=== PATIENT | female | born 1950 | race Caucasian/White ===

== ENCOUNTER 2017-08-20 09:25 | Day surgery (SDC) | payer MEDICARE, MEDICAID ==
[~2017-08-20] VITALS: Ht 160 cm; Wt 69.0 kg
[~2017-08-20 09:25] MED LIST: COMBIVENT RESPIM4 GM INH; DOXYCYCLINE HY100 MG PO; DURAGESIC1 EAC4 TD; GABAPENTIN300 MG PO; MEDI-PATCH WIT1 EACH TOP; MORPHINE SULFAT15 M1 PO; MORPHINE SULFAT15 MG PO; NABUMETONE750 MG PO; NORCO 10-325 T1 EACH PO; OXYCODONE-ACET1 EAC3 PO; PREDNISONE20 MG PO; ROPINIROLE HCL3 MG PO; VENTOLIN HFA18 GM INH; ZOFRAN ODT4 MG PO
--- NOTE | 2017-08-20 10:25 | NUR ---
08/20/17 1024 [address] 1017-PATIENT ARRIVED TO PACU ON 10L MASK O2 SAT 100% PATIENT NONAROUSABLE ORAL AIRWAY IN PLACE RR EVEN. SR. ABDOMEN SOFT. 1023-WEANED TO 6L MASK O2 SAT 100%
--- NOTE | 2017-08-20 11:28 | NUR ---
HARD TO WAKE UP BUT STILL RATES PAIN OVER 10/10 WITH SLURRED SPEECH.
--- NOTE | 2017-08-20 11:31 | NUR ---
TO KOFI , DAVION. AUSTEN AT BEDSIDE.
--- NOTE | 2017-08-20 13:39 | NUR ---
BECOMING MORE AWAKE NO SLURR TO SPEECH. ASKING TO GO HOME. TAKING DRINKS OF WATER.
--- NOTE | 2017-08-20 13:49 | NUR ---
ON DC PT STILL C/O PAIN THIS IS HER DAILY PAIN NOT ASSOC WITH COLONOSCOPY.
--- NOTE | 2017-08-20 13:52 | OR ---
[facility] [address] [place], [place] [address] Signed DATE OF OPERATION: 08/20/2017 SURGEON: Whitney Cabrera MD PREOPERATIVE DIAGNOSES: 1. Melena/rectal bleeding. 2. Sigmoid resection for ischemia. 3. Diverticulosis. 4. External hemorrhoids. 5. An unspecified rectal/anal mass per patient. 6. Pruritus ani. 7. Constipation secondary to narcotics. POSTOPERATIVE DIAGNOSES: 1. A 5 mm polyps at 58 cm x 2, 50 cm and 30 cm. 2. Minimal diverticulosis. 3. Moderate internal anal skin tag. 4. Moderate internal and external hemorrhoids. PROCEDURE: Colonoscopy without biopsy. ESTIMATED BLOOD LOSS: None. INDICATIONS: Briseida is a 67-year-old female who I have known for quite some time. I had to remove her sigmoid resection for ischemic bowel. She is also known to have a little diverticulosis remaining. We did her last colonoscopy in 2008. She had fairly prominent external hemorrhoids at that time. The anastomosis was fine. However, more recently she has noticed some melena and rectal bleeding. She also is concerned about a mass at the anus. She thinks it is 12 inches long and she can pull at it, but it always goes back inside. She also has some constipation from her daily narcotic use and some pruritus ani. She has no family history of colon cancer or polyps. Because of her daily need for narcotics and her COPD, we did ask an anesthesia provider to help us with increased monitoring sedation. In fact, she is allergic to egg, so she was given etomidate today. In the office, I had reviewed colonoscopy with Briseida and her . They understand the nature of that test along with its risks including, but not limited to gas bloating, crampy abdominal pain, bleeding, perforation, requiring surgery, and missed diagnosis. She also understands the need for IV conscious sedation. Electronically Signed By: WHITNEY CABRERA MD 08/20/17 1352 PATIENT NAME: BRISEIDA QUIROZ OPERATIVE REPORT DATE OF : 48 REPORT #: [id number] PHYSICIAN: WHITNEY CABRERA MD PCP: CHARISSE WOODARD MD REPORT IS CONFIDENTIAL AND NOT TO BE RELEASED WITHOUT AUTHORIZATION [facility] [address] [place], [place] [address] Signed She had expressed understanding and wished to proceed. PROCEDURE NOTE: Briseida was taken into our endoscopy suite and placed in the left lateral decubitus position. She was given etomidate per our nurse nut tightener. A digital rectal exam was performed and as always she has moderate external hemorrhoids and I could feel the moderate indurated internal anal skin tag. The adult colonoscope was then introduced and advanced all around into the cecum under direct visualization of camera without difficulty. Her prep was good. The scope was slowly withdrawn. The above-mentioned polyps were removed with the help of hot biopsy forceps. She does have a few diverticula in the right and left colon. They were minimal in number, and moderate in size. The anastomosis at the top of the rectum is well healed. The rectum itself was unremarkable. Upon retroflexion of scope, she does have moderate internal hemorrhoids and of course, the moderate indurated internal anal skin tag. After this, the gas was suctioned out. The colonoscope removed. Brisedia tolerated the procedure quite well. RECOMMENDATIONS: I will see Briseida bautista in my office in 7 to 14 days to review her results. Whitney Cabrera MD ALB/MODL /[id number] cc: MD Charisse Monk MD Copies: WHITNEY CABRERA MD, JONATHAN MD ~ Electronically Signed By: WHITNEY CABRERA MD 08/20/17 1352 PATIENT NAME: BRISEIDA QURIOZ OPERATIVE REPORT DATE OF : 48 REPORT #: [id number] PHYSICIAN: WHITNEY CABRERA MD PCP: CHARISSE WOODARD MD REPORT IS CONFIDENTIAL AND NOT TO BE RELEASED WITHOUT AUTHORIZATION
== END 2017-08-20 13:40 | disposition home or self-care (01) ==
LOC: DS 09:25 → OPS 09:25
PROVIDERS: Colon & Rectal Surgery
PROC: 0DBE8ZZ Excision of Large Intestine, Via Natural or Artificial Opening Endoscopic (ICD-10-PCS; principal; 2017-08-20 09:15)
DX: D12.6 Benign neoplasm of colon, unspecified (principal); K57.30 Diverticulosis of large intestine without perforation or abscess without bleeding; K64.8 Other hemorrhoids; K64.4 Residual hemorrhoidal skin tags; J44.9 Chronic obstructive pulmonary disease, unspecified; F17.210 Nicotine dependence, cigarettes, uncomplicated; E78.00 Pure hypercholesterolemia, unspecified; Z90.49 Acquired absence of other specified parts of digestive tract; Z88.0 Allergy status to penicillin; Z88.2 Allergy status to sulfonamides; Z88.8 Allergy status to other drugs, medicaments and biological substances; Z79.82 Long term (current) use of aspirin; Z79.891 Long term (current) use of opiate analgesic; Z79.899 Other long term (current) drug therapy
CPT/HCPCS: 88305; J1720; J2704; J7120

== ENCOUNTER 2019-02-13 10:26 | Emergency (ER) | payer MEDICARE, MEDICAID ==
[~2019-02-13] VITALS: Ht 160 cm; Wt 69.0 kg
[2019-02-13] MEDS ORDERED: ZITHROMAX250 MG PO (10:43)
[2019-02-13] MEDS ORDERED: PULMICORT FLE180 MCG INH (10:43)
[2019-02-13] MEDS ORDERED: SPIRIVA18 MCG INH (10:43)
[2019-02-13] MEDS ORDERED: PREDNISONE20 MG PO (11:43)
== END 2019-02-13 11:51 | disposition home or self-care (01) ==
LOC: ED 10:26
DX: J44.9 Chronic obstructive pulmonary disease, unspecified (principal); F17.200 Nicotine dependence, unspecified, uncomplicated; Z88.0 Allergy status to penicillin; Z88.2 Allergy status to sulfonamides; Z91.012 Allergy to eggs; Z88.1 Allergy status to other antibiotic agents; Z88.8 Allergy status to other drugs, medicaments and biological substances; Z79.899 Other long term (current) drug therapy
CPT/HCPCS: 71045; 80053; 83880; 85025; 94640; 96374; 99285-25; 99406; J2930

== ENCOUNTER 2019-06-26 01:59 | Inpatient (IN) | payer MEDICARE, MEDICAID ==
[~2019-06-26] VITALS: Ht 157.5 cm; Wt 85.7 kg
[~2019-06-26 01:59] MED LIST changes: +PULMICORT FLE180 MCG INH; +SPIRIVA18 MCG INH; +ZITHROMAX250 MG PO
--- NOTE | 2019-06-26 05:00 | NUR ---
PT ARRIVED ON FLOOR AT 0415. PT HAS REFUSED BI-PAP AT SINCE ARRIVAL AND IS ON 3L O2 OXY MASK. ALL LOBES ARE COARSE WITH EXPIRATOY WHEEZING PRESENT, THE BASES ARE VERY TIGHT. ABD SOUNDS ARE WDL, PT HAS BILATERAL LOWER LEG EDEMA +1. RADIAL AND PEDIS PULSES +2. PT IS AAOX4.
--- NOTE | 2019-06-26 05:38 | NUR ---
PT HAS SEVERE ACTIVITY INTOLERANCE AND AT THIS TIME I WILL NOT GET PT OUT OF BED. PT IS SINUS TACH, HR IS UP TO 140'S WHEN JUST MOVING AROUND IN BED. WORK OF BREATHING IS VERY MUCH PRESENT. WILL CONTINUE TO MONITOR.
--- NOTE | 2019-06-26 06:20 | NUR ---
PT AT THIS TIME IS SLEEPING SITTING UP STRAIGHT IN BED. RR NOW 16, O2 SATS 94% ON 1.5L O2 OXY MASK. HR 110. NO NEW CONCERNS NOTED.
--- NOTE | 2019-06-26 08:44 | NUR ---
IV SITES ARE INTACT, NO REDNESS OR SWELLING NOTED, FLUIDS AND FLUSHES INFUSE EASILY.
--- NOTE | 2019-06-26 09:08 | NUR ---
PT ASSISTED UP TO SIT AT THE BEDSIDE. PT DENIES NEED FOR THE BEDSIDE COMMODE. PT IS ALERT AND ORIENTED X4, AND APPEARS FATIGUED EASILY. PT MANTAINS O2 SATS WITH 2 L EITHER NC OR OXYMASK. SPOUSE IS AT THE BEDSIDE,
--- NOTE | 2019-06-26 09:44 | NUR ---
FULL REPORT GIVEN TO JESSICA BHATTI VIA PHONE, ALL QUESTIONS ANSWERED. PT IS TO BE TRANSFERED TO ROOM 113.
[2019-06-26] MEDS ORDERED: ALBUTEROL1.25 MG/3 NEB (09:47)
--- NOTE | 2019-06-26 09:53 | NUR ---
MED REC COMPLETED. SPOKE WITH THE PATIENT AND HER . THEY DISCUSSED HAVING ISSUES WITH THE ALBUTEROL NEBULIZER FOR THE PAST FEW WEEKS. ALSO STATED THE SHE IS NOT USING IT ROUTINELY PRESCRIBED.
--- NOTE | 2019-06-26 10:35 | NUR ---
PT TRANSFERED TO ROOM 113 VIA BED, ALL PERSONAL BELONGINGS WENT WITH PT. ALL KITS MEDS TRANSFERED WITH PT. JESSICA BHATTI ASSISTED WITH TRANSPORT.
--- NOTE | 2019-06-26 11:26 | NUR ---
PT ARRIVED FROM CCU AT 1045. PT WAS SITTING IN BED, WITH OXYMASK ON. PT IS ALERT AND ORIENTATED, MAKING JOKES. ABLE TO MAKE NEEDS KNOWN. ALL PERSONAL BELONGINGS WERE TRANSFERED. ASSESSMENT COMPLETE, VITALS COMPLETE.
--- NOTE | 2019-06-26 14:20 | NUR ---
PATIENT IN BED WATCHING TV, VISITOR IN ROOM. CALL LIGHT IN REACH. NO FURTHER NEEDS AT THIS TIME.
--- NOTE | 2019-06-26 16:37 | EKG ---
[facility] [address] [facility] [place] [facility] [place], [place] [address] Signed Sinus tachycardia Otherwise normal ECG When compared with ECG of 06-AUG-2017 11:48, No significant change was found Confirmed by GUERO DU MD ([id number]) on 06/26/2019 4:37:14 PM Electronically Signed By: GUERO DU MD 06/26/19 1637 PATIENT NAME: BRISEIDA QUIROZ Electrocardiogram DATE OF : 48 PHYSICIAN: GUERO DU MD REPORT #: [id number] REPORT IS CONFIDENTIAL AND NOT TO BE RELEASED WITHOUT AUTHORIZATION
--- NOTE | 2019-06-26 18:45 | NUR ---
PATIENT IN BED WATCHING TV. CALL LIGHT IN REACH. NO FURTHER NEEDS AT THIS TIME.
--- NOTE | 2019-06-26 20:45 | NUR ---
PROPOSAL SPECIALIST ROUND NOTE. PT UTILIZES CALL LIGHT. [employer] SALES ENGINEER REQUESTING ASSISTANCE TO CONTACT HER . PT'S CONTACTED BY THIS [employer] SALES ENGINEER, STATES HE WILL BE HERE SHORTLY TO VISIT WITH [facility] PER PT'S REQUEST. PT HAS MULITPLE QUESTIONS REGARDING MEDICATIONS AND CURRENT ILLNESS. QUESTIONS ANSWERED. VS OBTAINED. PT DENIES FURTHER NEEDS AT THIS TIME. CALL LIGHT IN REACH.
--- NOTE | 2019-06-26 21:45 | NUR ---
Up to bsc, voided, clear yellow urine. Back to bed. increased SOB noted with exertion, R 32, CPOX readinggs on 3L O2 via Oxymask was 92%. when returning to bed, after a few minutes cpox readings on oxymask went up to 96%, R24, moist non productive cough present, lungs with exp and insp whezing. Tolerating fluids well, received scheduled Solumedrol 80mg. Robafen DM cough syrup given on request. Pt Cooperative with assessment, pleasant, alert and oriented, follows instructions well and lets her needs know. No other c/o pain or n/v stated, Repositions self in bed. HOB elevate to her comfort
--- NOTE | 2019-06-27 00:23 | NUR ---
Awake, Oxymask in place, received a neb tx. Received tessalon perles earlier,per cough, calm. watching tv. call light and fluids at bedside
--- NOTE | 2019-06-27 04:03 | NUR ---
Resting, eyes closed, no resp distress. O@ oxymask in place. call lihgt at bedside.
--- NOTE | 2019-06-27 05:30 | NUR ---
Currently awake, O2 2L oxymask in place, SOB and tacheipneic with exertion. Gets solumedrol IV and nebs. Lungs exp/insp wheezing. Up to bsc voids QS. 1PA. Tolerating diet and liquids well. Medicated with Tylenol 500mg po c/o 07/05 generalized pain, " I would like to have Gabapentin more often, I am on old woman, I need to take my meds when I need them". Explained to pt about med times and reasong behinf, not receptive, will continue to reinforce teaching r/t med times-med availability. Calmer, watching TV. SL patent
--- NOTE | 2019-06-27 06:38 | NUR ---
pt c/o constipation, will give mom
--- NOTE | 2019-06-27 06:46 | NUR ---
Given 30cc MOM as pt states she has not had a bm for several days. Up to bsc, voided, back to bed. sob with exertion. in room
--- NOTE | 2019-06-27 07:14 | NUR ---
RECIEVED BEDSIDE REPORT FROM MAGY GUTIERREZ. PT IS AWAKE AND ALERT, HAS MENU FOR BREAKFAST ORDER. LABS HAVE NOT RETURNED YET, PT WAS A VERY DIFFICULT DRAW. PT WAS A&O OVERNIGHT, NO CONFUSION NOTED. LOOSE BM CONTINE, LACTULOSE DC'D.
--- NOTE | 2019-06-27 07:18 | NUR ---
RECIEVED BEDSIDE REPORT FROM TIFF RN. PT IS CONFUSED, FORGETFUL, BUT PLEASANT. PT REQUESTED MILK OF MAG, DESPITE BM CHARTED YESTERDAY. PT IS VERY ACTIVITY INTOLERATNT. BECOMES SOB WITH TALKING. USES BSC. O2 IN PLACE AT 3L.
--- NOTE | 2019-06-27 09:42 | NUR ---
PT PLACED ON BIPAP PER RT. PT IS VERY SOB, DYSPENIC WITH TALKING. TOLERATING BIPAP WELL.
--- NOTE | 2019-06-27 09:50 | NUR ---
PT CALLED THE RN STATION, PANICING WITH THE BIPAP ON. RN REMOVED THE BIPAP PER PT REQUEST AND REPLACED OXYMASK AT 2L. PT IS VERY ANXIOUS AND JITTERY. ADVISED DR DU, WHO GAVE VERBAL ORDER FOR EKG. EKG COMPLETE, SHOW SINUS TACHY. PT APPEARS MORE COMFORTABLE AFTER DR DU ROUNDED.
--- NOTE | 2019-06-27 11:09 | NUR ---
PT STATED THAT SHE IS TIRED AND DOES NOT WANT TO BE FULL CODE. PT SHOWS FULL CODE IN THE COMPUTER. RN ASKED PT WHAT SHE WOULD WANT IF SHE WAS FOUND NOT BREATHING AND WITHOUT A PULSE. SHE WAS ADAMENT THAT SHE "W[facility], JUST LET ME GO" SHE GAVE AN EMPHATIC "NO" WHEN ASKED IF SHE WOULD WANT CPR, INTUBATION, OR TUBE FEEDING. RN EXPLAINED WHAT FULL CODE, DNR/DNI, AND POLST MEANT. PT'S CAME OUT AND ASKED FOR A POLST FORM, IT WAS GIVEN. WILL UPDATE DR DU TO DISCUSS CHANGING POLST WITH PT.
--- NOTE | 2019-06-27 13:41 | NUR ---
PATIENT IN BED RESTING. PATIENT HAD NO VOID, RN NOTIFIED. FRESH WATER AND COFFEE GIVEN. CALL LIGHT IN REACH. NO FURTHER NEEDS AT THIS TIME.
--- NOTE | 2019-06-27 14:07 | NUR ---
PT HAD NOT VOIDED ON THIS SHIFT. BLADDER SCAN SHOWED 532ML. IMMEDEATELY AFTER BLADDER SCAN, PT NEEDED TO VOID. VOIDED 300ML WITH A BM. UPDATED DR DU.
--- NOTE | 2019-06-27 16:58 | NUR ---
PT'S HAS BROUGHT HER REQUESTED SHOWER SUPPLIES. AT THIS TIME, SHE IS DECLINING A SHOWER, MAKING SEVERAL EXCUSES. RN HAS REMINDED PT AND HER THAT STAFF WILL BE ABLE TO ASSIST WITH THE SHOWER. PT IS GETTING CONCERNED ABOUT AGGRESSION RELATED TO STEROID USE. IN THE PAST, SHE HAS BEEN AGGRESSIVE TOWARD HER WHEN ON STEROIDS AND SHE IS AFRAID OF HER REACTIONS. RN ADVISED HER THAT STAFF WILL MONITORING HER BEHAVIORS AND WILL ALERT THE DOCTOR IF NEEDED.
--- NOTE | 2019-06-27 18:35 | NUR ---
PATIENT IN BED WATCHING TV. PATIENT NOW REFUSING SHOWER AND WANTS IT IN THE AM. FRESH WATER GIVEN. CALL LIGHT IN REACH. NO FURTHER NEEDS AT THIS TME.
--- NOTE | 2019-06-27 21:05 | NUR ---
ASSISTED PT TO BSC, SL UNSTEADY ON FEET. UNMEASURED VOID, WITH VERY SMALL BM. BACK TO BED INDEPENDENTLY. VS WNL. CALL LIGHT WITHIN REACH.
--- NOTE | 2019-06-27 21:42 | NUR ---
Pt on 2L oxymask, lungs much improved but still with insp wheezing, not as coarse, moist non productive cough present, declines robutossin or tessaloin perles at this time. CPOX in place sats 94% p 86 Rn 18 at [facility], able to talk for several minutes w/o getting sob like she did yesterday, much improved. Coop with assessment. fluids and call light at bedside.
--- NOTE | 2019-06-27 23:14 | NUR ---
OXYMASK IN PLACE, HOB ELEVATED TO HER COMFORT, EYES CLOSED, CALM, CALL LIGHT AT BEDSIDE
--- NOTE | 2019-06-27 23:30 | NUR ---
CALL LIGHT ANSWERED. 1 PA TO BEDSIDE COMMODE ANDBACK TO BED. WARM BLANKET PROVIDED.
--- NOTE | 2019-06-28 00:11 | NUR ---
Resting, O2 via OXymask in place, no resp distress noted at this time, HOB elevated to her comfort. comfortable, call lihgt at bedside
--- NOTE | 2019-06-28 02:08 | NUR ---
O2 @L Oxymask in place, awakes easily, no resp distress, lungs sounds w/o changes. Gabapentin given as scheduled, No c/o pain or c/o cough. call light and fluids at bedside
--- NOTE | 2019-06-28 03:40 | NUR ---
RESTING, OXYMASK IN PLACE, NO RESP DISTRESS, HOB ELEVATED TO PTS COMFORT. CALL LIGHT AT HANDS REACH
--- NOTE | 2019-06-28 05:03 | NUR ---
Up to bsc, O2 2L oxymask, increaed resp and c/o being SOB, CPOX in place, sats 87% and then up to 88-92%, p 106. R24-28. Robutossin given per cough. RT notified and here giving a neb tx. Pt repositions self in bed.
--- NOTE | 2019-06-28 05:21 | NUR ---
pt continues to have sob with exertion when getting up to bsc. O2 2L Oxymask on. CPOX inplace, sats 92% at this time. dropped top 87% earlier when up to bsc, recuperated in a few seconds. Receiving neb tx. Received cough syrup x1 per moist productive cough. Receiving 80mg Solumedrol IV, SL patent. Unsteady gait, 1PA. using call light appropriately. tolerating fluids well
--- NOTE | 2019-06-28 07:27 | NUR ---
BEDSIDE REPORT RECEIVED FROM TIFF BHATTI. WHITE BOARD UPDATED. PATIENT AWAKE SITTING UP IN BED. 2L [address] REQUESTING ICE WATER AND EYE DROPS THIS MORNING. A NOTE LEFT BY NIGHT RN FOR EYE DROP ORDER FROM .
--- NOTE | 2019-06-28 11:40 | NUR ---
Spoke with Sue to complete [place]ING[place] tejada. Pt statess she and spouse live in an RV in [place]. 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 She feels her health and declined and she is unable to do any activity. She uses a wc, but mostly stays in her RV. She can walk to the bathroom holding onto furniture. She was going to [facility], but states she is no longer able to make the trip. Copied and gave her the business cards for Dr. Gonzalez and [facility]. She feels she was addicted to opiods in the past, but no longer. Wanting script for gabapentin. Informed she will need to discuss with hospitalist or pcp. Pt is wanting 02 for home use. Discussed with her multiple times she will need an 02 qualifier and order from the physician. She is wanting a small portable concentrator and informed I don't believe this is what most companys will dispense. I spoke with [facility] and they do have the portable concentrators, but pt cannot sleep with them. Will need order for 02 and qualifier.
--- NOTE | 2019-06-28 14:08 | NUR ---
PT ALERT AND ORIENTED AND SITTING UP IN BED. O2 MASK IN USE BY PT. SHE STATED THIS IS SOMETHING NEW-PROBABLY SHOULD HAVE BEEN USING O2 AT HOME. EXPRESSED NEED TO BE MORE INFORMED. FEELS THERE IS TOO MUCH THAT CANNOT BE SHARED WITH HER-AND STATED SHE WOULD LIKE TO KNOW WHAT IS GOING ON WITH HER LUNGS. WILL FOLLOW UP WITH RN. PT ALSO WOULD LIKE HER LUNCH HEATED UP, THALIA BOSE IN TO ASSIST. PT REQUESTED PRAYER, WILL FOLLOW NEEDED
--- NOTE | 2019-06-28 14:55 | NUR ---
PATIENT IN BED WATCHING TV. CALL LIGHT IN REACH. NO FURTHER NEEDS AT THIS TIME.
--- NOTE | 2019-06-28 19:08 | EKG ---
[facility] [address] [facility] [place], [place] [address] Signed Sinus tachycardia Low voltage QRS Borderline ECG When compared with ECG of 26-JUN-2019 02:12, No significant change was found Confirmed by ALONDRA BE DO ([id number]) on 06/28/2019 7:08:14 PM Electronically Signed By: ALONDRA BE DO 06/28/19 1908 PATIENT NAME: BRISEIDA QUIROZ Electrocardiogram DATE OF : 48 PHYSICIAN: ALONDRA BE DO REPORT #: [id number] REPORT IS CONFIDENTIAL AND NOT TO BE RELEASED WITHOUT AUTHORIZATION
--- NOTE | 2019-06-28 19:15 | NUR ---
BEDSIDE REPORT RECEIVED FROM OFFGOING RNJESSICA. PT SITTING IN BED, DENIES NEEDS. CALL LIGHT IN REACH.
--- NOTE | 2019-06-28 19:46 | NUR ---
ANSWERED CALL LIGHT. 1 SBA TO THE BEDSIDE COMMODE AND BACK TO BED. PATIENT ASKED FOR DECAF COFFEE. PROVIDED.
--- NOTE | 2019-06-28 22:39 | NUR ---
PT ASSESSMENT COMPLETE. PT RATES PAIN 1-3/10 TO BLE'S, REQUESTS GABAPENTIN. PT REPORTS SOB. O2 IN PLACE VIA OXYMASK AT 2 LPM. LUNG SOUNDS WITH EXPIRATORY WHEEZE THROUGHOUT, COUGH PRESENT THROUGHOUT ASSESSMENT. PT DENIES MUCOUS PRODUCTION. IV FLUSHED, PATENT. PT DENIES FURTHER NEEDS AT THIS TIEM. CALL LIGHT WITHIN REACH.
--- NOTE | 2019-06-28 23:15 | NUR ---
PT UTILIZES CALL LIGHT IN ORDER TO USE BSC. UP TO BSC AND BACK TO BED WITH SBA. PT BECOMES SOB WITH MOVEMENT. ICE WATER REFILLED. PT DENIES FURTHER NEEDS. CALL LIGHT IN REACH.
--- NOTE | 2019-06-29 00:10 | NUR ---
PT RESTING IN BED WITH EYES CLOSED. RESPIRATIONS EVEN AND UNLABORED, OXYMASK IN PLACE. PT DOES NOT WAKE WHILE DIGITAL CARTOGRAPHER AT DOORWAY. CALL LIGHT IN REACH.
--- NOTE | 2019-06-29 03:38 | NUR ---
PT ASSESSMENT COMPLETE. PT REPORTS PAIN WELL CONTROLLED, REQUESTS GABEPENTIN TO "STAY AHEAD". STATES THAT SOB IS "BAD", RT TO ROOM TO ADMINISTER NEB VIA BIPAP. SA02 93%. LUNGS WITH EXPIRATORY WHEEZES THROUGHOUT. PT WITH NONPRODUCTIVE COUGH THROUGHOUT ASSESSMENT. PT UP TO BSC AND BACK TO BED WITH 1 PA. REQUESTS COFFEE, MEDIA JOB TITLES DELIVERED. CALL LIGHT IN REACH.
--- NOTE | 2019-06-29 03:43 | NUR ---
DECAF COFFEE PROVIDED PER PATIENT'S REQUEST.
--- NOTE | 2019-06-29 05:36 | NUR ---
comic writer to room for scheldued medication administration. pt resting with eyes closed. wakes to voice and touch. remains drowsy while wrtier in room. pt denies further needs. call light in reach.
--- NOTE | 2019-06-29 06:13 | NUR ---
PT SLEPT WELL THIS SHIFT. O2 AT 2 LPM VIA OXYMASK. SOB WITH MOVEMENT. BSC FOR ACTIVITY INTOLERANCE. BIPAP PRN, PT PREFERS NEBS ADMINISTERED VIA BIPAP. 1 PA. ATTENDS FOR DRIBBLING INCONTINENCE. IV SL. SOLUMEDROL. SCHEDULED NEBS. DOXYCYCLINE.
--- NOTE | 2019-06-29 07:15 | NUR ---
BEDSIDE REPORT FORM DANIELLE Cuenca RN..PT RESTING IN BED RR EVEN AT 20 BPM, NO DISTRESS NOTED. PT APPEARS TO BE SLEEPING.
--- NOTE | 2019-06-29 07:27 | NUR ---
PT ONE PERSON ASSIST TO BEDSIDE COMMODE TO VOID AT THIS TIME.
--- NOTE | 2019-06-29 08:32 | NUR ---
PT SITTING UP FOR BREAKFAST REPORTS SHE IS NOT HAPPY SHE WAS NOT WOKE EARLIER FOR GABAPENTIN. SHE IS EATING PIZZA AT THIS TIME.
--- NOTE | 2019-06-29 11:21 | NUR ---
PT SITTING UP IN RECLINER VISITNG WITH SHAZIA RICHTER. PT SMILING AND LAUGHING
--- NOTE | 2019-06-29 13:38 | NUR ---
Spoke with patient. Per am report 02 has been off. Pt is sitting with venti mask on at 3 l. States she feels better with 02 on. Asking for concentrater, updated she will need to have 02 qualifier with Rx from before 02 can be ordered. Understanding stated. Pt complains she does not have energy and is unable to walk any distance without sob.
--- NOTE | 2019-06-29 13:56 | NUR ---
PT FEELING SOMEWHAT BETTER-SLEPT WELL FOR HER LAST NIGHT. IN PAIN, SHE SAID SHE SLEPT THROUGH HER PAIN MEDS. HAD GOOD VISIT WITH PT, REQUESTED PRAYER, WILL FOLLOW NEEDED
--- NOTE | 2019-06-29 14:11 | NUR ---
IN VISITING WITH PT, PT AT FIRST THINKING I AM AN ALIEN INVADER COMING TO EMPTY HER BRAIN. I INTRODUCED MYSELF AND SHE TOLD ME SHE WAS SORRY. NOT SURE OF PT TOTAL ABILITY TO COMPREHEND CONVERSATIONS. I TALKED WITH PT ABOUT THE COPD MAGNET AND SHE WAS ABLE TO VERBALIZE IT BACK TO ME. STATES SHE READS ALOT ABOUT COPD ON LINE AND THAT MORE INFORMATION THAT I CAN GIVE HER. STATES YOU KNOW IF YOUR OVER 50 YOU COME TO THE HOSPITAL TO . THAT IS THE WAY IT IS. REASSURED PT THAT THIS IS NOT SO. PT THEN ACCEPTED PT EDUCATION INFORMATION I GAVE HER AND SHE HAD ME PUT IT IN HER CLOSET. DENIED FURTHER QUESTIONS OR CONCERNS AT THIS TIME.
--- NOTE | 2019-06-29 14:49 | NUR ---
PATIENT UP FROM CHAIR TO BED, 1PA. FRESH COFFEE GIVEN. CALL LIGHT IN REACH. NO FURTHER NEEDS AT THIS TIME.
--- NOTE | 2019-06-29 16:08 | NUR ---
THIS RN ROUNDING TO PATIENT ROOM, PHYSICAL THERAPY DOROTHY IN PATIENT ROOM ATTEMPTING TO WORK WITH PATIENT, PATIENT IS SITTING AT EDGE OF BED OXYGEN MASK OFF OXYGEN SATURATIONS 90% VERY HOSTIAL POSTURE LEANING FORWARD YELLING, "I CANT WALK, I CANT USE THE COMMODE WITHOUT HELP" "YOU DONT KNOW ME, YOU ARE TELLING ME I NEED TO GO HOME,...YOU WANT ME TO GO HOME?, I WILL CALL SOMEONE" PATIENT THEN TURNS AROUND ON BED AND GRABS PHONE AND ATTEMPTS TO YANK IT TO HER, THE CORD THEN SNAPPED WITH THE FORCE SHE WAS PULLING. THIS RN THEN TOOK PATIENTS HAND AND ASSURED HER THAT LEAVING IS NOT WHAT ANYONE IS SAYING AT THIS POINT. RN SAID, WE A TEAM TOGETHER NEED TO MAKE SURE YOU ARE STONG ENOUGH TO GO HOME. THIS RN SAID TO PATIENT YOU ARE VERY STRESSED, I WILL GET YOU YOUR VISTRIL FOR ANXIETY NOW AND DOROTHY CAN COME BACK LATER TO WORK WITH YOU. DOROTHY SAID "I WILL COME SEE YOU TOMORROW"
--- NOTE | 2019-06-29 17:19 | NUR ---
PT HAS LIMITED ACITIVYT TOLERANCE TO BEDSIDE COMMODE. PHYSICAL THERAPY ATTEMPTED TO WORK WITH PT TODAY AND PT BECAME HOSTILE, VISTRIL HELPED. PT REPORTS STEROIDS CAUSE THIS TEMPERMENT. PT TOLERATING 1L OXYGEN, SHE PREFERS THE OXYMASK OVER N.C. SHE HAS BEEN COOPERATIVE IN ALL OTHER ASPECTS OF HER CARE THIS SHIFT.
--- NOTE | 2019-06-29 18:13 | NUR ---
PATIENT IN BED WATCHING TV. B\P A LITTLE LOW AND NO VOID, RN NOTIFIED. CALL LIGHT IN REACH. NO FURTHER NEEDS AT THIS TIME,.
--- NOTE | 2019-06-29 19:30 | NUR ---
BEDSIDE REPORT RECEIVED FROM MAGY BANKS. pt AWAKE, RESTING IN BED. 2L OXYGEN BY NC IN PLACE. pt DENIES SOB WITH 2L OXYGEN ON.
--- NOTE | 2019-06-29 20:54 | NUR ---
PT REQUESTED GABAPENTIN. GIVEN. PT COMPLAINED ABOUT THE OUTSIDE NOISE OF THE CLEANING OF THE FLOORS. WILL PASS ON TO THE COUNTY SUPERINT[employer]. NOTED PT HAD A HOSPITAL BAG WHICH SHE STATES "LILIANA" GAVE HER, (WAS MATT), THAT INCLUDED EAR PLUGS. ASSISTED PT TO GET THEM OUT AND SUGGESTED SHE USE THEM UNTL THE ROPE CUTTER ARE DONE.
--- NOTE | 2019-06-29 22:32 | NUR ---
IN pt ROOM FOR SCHEDULED MEDICATIONS. PRN ANXIETY MEDICATION ADMINISTERED REQUESTED. ASSESSMENT COMPLETE. WHEEZES HEARD THROUGHOUT. DRY COUGH. PRN MEDICATION ADMINISTERED. IV ROTATION PER POLICY. NEW PIV LEFT FOREARM, TOLERATED WELL. CALL LIGHT IN REACH. ASSISTED TO REPOSITION. HOT TEA, WATER PROVIDED.
--- NOTE | 2019-06-30 00:43 | NUR ---
pt AWAKENS TO VOICE. PRN GABAPENTIN ADMINISTERED REQUESTED, pt RATES PAIN 4/10. SPO2 95% ON 2L OXYGEN BY OXYMASK. SCHEDULED NEB TREATEMENT ADMINISTERED. CALL LIGHT IN REACH.
--- NOTE | 2019-06-30 02:48 | NUR ---
CHECKED ON pt. RESTING IN BED WITH EYES CLOSED, RR 14. 2L OXYGEN BY OXYMASK IN PLACE.
--- NOTE | 2019-06-30 05:04 | NUR ---
pt AWAKENS TO VOICE FOR SCHEDULED NEB TREATMENT BY MAGY TORRES IN ROOM. VSS. pt RATES PAIN 4/10 IN ARM, LEGS. PRN GABAPENTIN ADMINISTERED REQUESTED. ASSESSMENT COMPLETE. EXPIRATORY WHEEZES HEARD THROUGHOUT LUNG LOBES. SPO2 WNL ON 2L OXYGEN BY OXYMASK. 1PA TO [facility], GAIT UNSTEADY. WALKER BROUGHT IN ROOM. CALL LIGHT IN REACH.
--- NOTE | 2019-06-30 05:13 | NUR ---
pt RESTED WELL THIS SHIFT. 2L OXYGEN BY OXYMASK IN PLACE. NEB TREATMENTS WITH BIPAP. GAIT UNSTEADY, 1-2PA TO BSC FOR QS VOIDS. EX WHEEZES HEARD THROUGHOUT LUNG LOBES. DRY COUGH NOTED, PRN COUGH MEDICATION X 1. PRN ANXIETY MEDICATION. pt COOPERATIVE, ALERT AND ORIENTED TO ALL. NEW PIV LEFT FOREARM SL.
--- NOTE | 2019-06-30 06:40 | NUR ---
IN pt ROOM FOR SCHEDULED MEDICATION ADMINISTRATION. pt SLEEPING, AWAKENS TO VOICE. PRN VISTARIL ADMINISTERED REQUESTED. TEA AND ICE WATER PROVIDED. CALL LIGHT IN REACH.
--- NOTE | 2019-06-30 07:27 | NUR ---
BEDSIDE REPORT RECEIVED PT ALERT AND INTERACTIVE MAKES NEEDS KNOWN
--- NOTE | 2019-06-30 09:12 | NUR ---
PT SITTING UPRIGHT IN BED, EXTREMELY TALKATIVE. SATS MAINTAINED LOW 90'S DURING AND AFTER SPEECH. STATES SHE FEELS MUCH BETTER THAN YESTERDAY. BREAKFAST SERVED
--- NOTE | 2019-06-30 10:44 | NUR ---
PT UP TO WORK WITH P/T
--- NOTE | 2019-06-30 11:30 | NUR ---
Spoke with Sue as RT Fadumo and Monty and OT Claire have spoken to me today about this patient. Pt is now requesting therapies today after refusing yesterday. States she had an "aha" moment when Fadumo provided education and encouraged her to improve her strength with PT as this will help her breathing. Discussed rehab at a SNF and pt agrees, but would like to stay a few more days. Informed I will send chart to [facility] as she does not want to go out of town, and Dr. Cornejo will discuss dc date with her. Pt also began discussing she thinks she has aliens in her chest which cause her to have difficulty breathing. Therapist report she has made other statements like this. Pt requests I call her spouse and give update she may go to a SNF. Er summary, H&P, progress notes, PT/OT mikayla, face sheet sent to T.
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
--- NOTE | 2019-06-30 13:33 | NUR ---
PT SITTING UPRIGHT IN RECLINER WATCHING TV, BREATHING IS EVEN AND UNLABORED. PT DENIES ANY DISCOMFORTS OR NEEDS OF AT THIS TIME.
--- NOTE | 2019-06-30 14:37 | NUR ---
PATIENT IN CHAIR WATCHING TV. CALL LIGHT IN REACH. NO FURTHER NEEDS AT THIS TIME.
--- NOTE | 2019-06-30 14:41 | NUR ---
DR BE IN TO SEE PT SHE IS UP IN THE CHAIR WITH A VISITOR PRESENT. CONTINUES TO TALK A GREAT DEAL, EXPRESSES CONCERNS AND ASKS QUESTIONS. QUESTIONS ANSWERED. CALL LIGHT IN HAND FRESH H20 AT CHAIR SIDE. BREATHING IS EVEN AND UNLABORED. PT CONINTUES TO COUGH INFREQUENTLY 0 SPUTUM PRODUCTION
--- NOTE | 2019-06-30 16:19 | NUR ---
Spoke with Sue and let her know she was accepted to [facility]. Spouse is in the room and pt becomes angry stating your trying to get rid of me. Then stating I know how these tactics work. As pt became angrier, I told her I would not speak to her until she calmed down and I will return when she has control. I started to leave and pt apologizes and requests I return. Pt informed I am not attempting to "get rid of her". There is a bed available which may or may not be available after tomorrow. It is her choice if she does or does not take it. Pt states she is willing to go as she knows she needs PT. She states she will only go if she has the special medication she has been receiving from [facility] and can use the machine. Pt has been given some resp. treatment through the Bipap, but most are per the wall. We discussed the special meds and I believe she is speaking about inhalers versus nebulizer treatments. Monty from [facility] had discussed this with her, the nebulizer treatments work better for her than inhalers. Let her know I will speak with RT and ask them to clarify medications. She requests I remind Dr. Cornejo to write orders for PT/OT, nebulizer treatments, and 02. Message left on his desk with SNF orders. Spoke with Monty and he will discuss concerns when he gives her nebulizer treatments and remove the bipap from the room as she has not used as she refused for the last few nights. Cont. to work for dc to SNF tomorrow for Sue.
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
--- NOTE | 2019-06-30 19:10 | NUR ---
ROUNDED CHARGE. PATIENT IS RESTING IN BED WITH EYES CLOSED, RR 17. CALL LIGHT IN REACH.
--- NOTE | 2019-06-30 19:26 | NUR ---
PT SITTING UP IN BED ON ROOM AIR, ALERT AND ORIENTED. BEDSIDE REPORT FROM MAVERICK Turner RN
--- NOTE | 2019-06-30 20:33 | NUR ---
PT REFUSED BOWEL MEDICATIONS AT THIS TIME, VERBALIZED DISCONTENT WITH DISCHARGE PLAN TO [facility] TOM[facility]. SHE IS 90% ON ROOM, YET FEELS SHE SHOULD STAY HERE TO BE CARED FOR BY THE PROFESSIONALS, ATTEMTED TO EDUCATE ON CARE NEEDS AND CARE PROVIDED AT [facility] THAT THEY ARE ALSO PROFESSIONALS AND WILL PROVIDE GOOD CARE. SHE WAS UNINTERESTED IN DISCUSSING THIS FURHTER.
--- NOTE | 2019-06-30 22:39 | NUR ---
PT ON ROOM AIR, CALLED TO USE BEDSIDE COMMODE PT ON ROOM AIR ONE PERSON ASSIST. PT BACK TO BED V/S TAKEN, PT IS 93% OXYGEN SATURATION ON ROOM AIR POST ACTIVITY. PT VERBALIZED UNHAPPY ABOUT DISCHARGE PLAN. SHE SAID SHE IS GOING HAVE TO [facility] , THEN SHE SAID "NO I WONT DO THAT" SHE REPORTED TO THIS RN THAT SHE USES A WHEELCHAIR AT HOME, TODAY SHE SAID, "I SHOULD NOT BE DISCHARGED BEFORE I CAN WALK OUT OF HERE ON MY OWN TWO FEET" PT IS ANIMATED IN ACTIONS WAVING ARMS AROUND AND USING PROFANITY, RAISED HER HAND WITH MIDDLE FINGER UP IF TO FLPI OFF . SHE MOVES ABOUT IN BED WITH GOOD STRENGTH. VISTRIL GIVEN AT THIS TME PT APPEARS UNDER A GREAT DEAL OF STRESS.
--- NOTE | 2019-06-30 23:20 | NUR ---
PT REPORTS PAIN AT HER LLQ SHE REPORTS SHE HAD SURGERY YEARS AGO BY AND WHEN THE MADE HER USE THE ACAPELLA IT STARTED HURTING A COUPLE DAYS AGO.
--- NOTE | 2019-06-30 23:42 | NUR ---
PT VERBALIZED LLQ PAIN AGAIN, ASSESSMENT AND PALPATION COMPLETE, NO NOTED BULGES, PT REPORTS PAIN RUNNING ALONG ABD MUSCLE LINE, SAID IT HURTS WHEN SHE COUGHS OR SITS UP, DICUSSED WITH PT POSSIBILITY OF HAVING A PULLED/STRAINED MUSCLE, AND THAT WILL SIMPLY TAKE TIME TO HEAL.
--- NOTE | 2019-07-01 00:27 | NUR ---
PT RESTING QUIETLY IN BED READING HER BOOK, ALERT, WARM PACK GIVEN TO APPLY TO SORE AREA ON LLQ.
--- NOTE | 2019-07-01 00:55 | NUR ---
PT RESTING IN BED EYES CLOSED, APPEARS TO BE SLEEPING.
--- NOTE | 2019-07-01 03:06 | NUR ---
PT UP TO BATHROOM AMBULATED ONE PERSON ASSIST, NO DISTRESS NOTED TOLERATED ACTIVITY WELL ON ROOM AIR, NO INCREASE OF RESPIRATORY WORK NOTED. PT REPORTS WARM PACK HELPED WITH ABD PAIN, REQUESTED ANOTHER, THIS WAS GIVEN. NO OTHER COMPLAINTS.
--- NOTE | 2019-07-01 04:10 | NUR ---
PT REPORTS NO PAIN AT FIRST, SHE THEN COUGHED AND SAID "OH, THERE IT IS THE PAIN IS BACK, I WILL NEED ANOTHER WARM PACK" THIS IS PROVIDED WELL GABAPENTIN AND VISTRIL SHE REPORTS FEELING ANXIOUS AND HAVING PAIN AT HER PACK.
--- NOTE | 2019-07-01 04:17 | NUR ---
PT HAS BEEN UP MOST OF SHIFT, HAS BEEN ANXIOUS AND VERBALIZING DISPLEASURE IN DISCHARGE PLAN. SHE HAS REPORTED LLQ PAIN THIS IS NOT NEW, SHE REPORTS IT IMPROVES TO NO PAIN WITH WARM PACK AND INCREASES PAIN WITH COUGH. PT HAS REMAINED ON ROOM AIR THIS ENTIRE SHIFT MAINTAINING 89-93% OXYGEN SATURATION. SHE HAS AMBULATED WELL ONE PERSON ASSIST TO BATHROOM TOLERATED ACTIVITY WELL ON ROOM AIR. REQUESTS VISTRIL AND GABAPENTIN OFTEN AVAILABLE.
--- NOTE | 2019-07-01 06:01 | NUR ---
PT CALLED REPORTED SORE THROAT AT THIS TIME. REQUESTED ROBITUSSIN, GIVEN AT THIS TIME. PT REQUESTED GABAPENTIN, THIS WAS GIVEN 2 HOURS AGO AND NOT AVAILABLE AT THIS TIME.
--- NOTE | 2019-07-01 07:41 | NUR ---
PATIENT SITTING UP IN BED WITH EYES OPEN. RESPIRATIONS EQUAL AND UNLABORED. 93% O2 ON RA. PT INQUIRING ABOUT SNF PLACEMENT LATER THIS AFTERNOON. NURSE WILL FOLLOW UP. CALL LIGHT IN REACH. BED ALARM ACTIVATED.
--- NOTE | 2019-07-01 08:28 | NUR ---
PATIENT SITTING UP IN BED EATING BREAKFAST. AT BEDSIDE. SCHEDULED MEDICATIONS ADMINISTERED, ASSESSMENT COMPLETED. PT COMPLAINING OF LLA PAIN. HEAT PACK IN PLACE. RESPIRATIONS E/U, 93% ON RA. PT STATES WILL BE TALKING TO LATER THIS MORNING TO DISCUSS PLAN FOR HER ABDOMINAL PAIN. PTS LAST BM RECORDED 06/27. PATIENT CURRENTLY ON BEDSIDE COMMODE. CALL LIGHT IN REACH.
--- NOTE | 2019-07-01 08:45 | NUR ---
PT REPORTING DIFICULTY BREASTHING. RATE AT 18, O2 SATURATIONS AT 88% ON RA. 1L MASK PLACED. (PT REFUSED NC). RT CALLED FOR SCHEDULED BREATHING TREATMENT. ATTEMPTED INCENTIVE SPEROMETER EDUCATION. PT REFUSED. CALL LIGHT IN REACH.
--- NOTE | 2019-07-01 08:52 | NUR ---
PATIENT WAS UP TO THE BATHROMM AND BACK TO BED, FRESH WATER GIVEN AND CALL LIGHT IN REACH
--- NOTE | 2019-07-01 11:00 | NUR ---
Spoke with Sue and updated orders have been sent to [facility] for her dc. She wants information on Pulmonary rehab and informed we will add to her dc instructions to she has phone number when she discharges from SNF. Pt is still concerned about dc and would like to stay in hospital for several more days. Discussed the difference between acute care and longer term care. Called spouse and requested he bring her wc to dc to SNF in with wc van. Pt denies other questions. Orders, PASSR, dionicio faxed to Bennie at [facility]. She reviewed and confirmed orders. Pt will dc when wc arrives.
--- NOTE | 2019-07-01 11:02 | NUR ---
PT IN ROOM TO WORK WITH PT. PT REPORTING LIGHT HEAD/DIZZINESS. PT SAT AT SIDE OF BED. O2 AT 90% 2L MASK. HR 90. B/P WNL. ORTHO VITALS/NO CHANGE. 2PA WITH GAIT BELT TO CHAIR. PT UNSTEADY GAIT BUT ONCE TO CHAIR USED ARMS AND ABS TO HOIST SELF INTO CHAIR, THEN CROSSED LEGS. PT REPORTS / AFTER TYLENOL ADMIN. PERSONAL ITEMS PLACED AT BEDSIDE IN REACH. CALL LIGHT IN REACH. DR NOTIFIED OF PT SESSION AND PT CONCERNS OF LIGHTHEADEDNESS AND LLQ PAIN.
[2019-07-01] MEDS ORDERED: DOXYCYCLINE HY100 MG PO (11:22)
[2019-07-01] MEDS ORDERED: HYDROXYZINE PAM25 MG PO (11:22)
--- NOTE | 2019-07-01 12:36 | NUR ---
PATIENT SITTING UP IN CHAIR FINISHING LUNCH. 1L O2 MASK, 94%. NO NEEDS REPORTED AT THIS TIME. CALL LIGHT IN REACH.
[2019-07-01] MEDS ORDERED: SUDOGEST30 MG PO (13:07)
--- NOTE | 2019-07-01 14:00 | NUR ---
PATIENT REFUSED TO LET ME HELP HER GET READY TO LEAVE FOR [facility] I GOT HER CLOTHES OUT OF THE CLOSET AND SHE GOT VERY UP SET WITH ME AND TOLD ME TO LEAVE HER STUFF A LONE, THAT HER WOULD DRESS HER. SHE ASKED FOR THE PHONE AND I HANDED IT TO HER SO SHE CALLED HER TO COME HELP HER SHOWER AND GET DRESSED..
--- NOTE | 2019-07-01 14:14 | NUR ---
Notified by staff, pt wanted to shower and rest prior to dc. WC has not arrived. Called spouse and he states he is on his way and will bring wc. Notified [facility] pt will be discharging when shower complete and wc arrives.
--- NOTE | 2019-07-01 14:15 | NUR ---
REPORT CALLED TO [facility]. HELPED PT SHOWERED. PT DRESSSED, IV REMOVED.
--- NOTE | 2019-07-01 14:25 | NUR ---
PT SITTING IN CHAIR, READING. PT USING O2 MASK, AND INFORMED ME THAT SHE IS HEADED TO [facility]. GAVE ENCOURAGEMENT AND CHALLENGED HER TO USE IT A TOOL TO HELP ACCOMPLISH HER GOAL OF HEADING HOME. PT THANKED ME, GAVE BLESSING WILL FOLLOW NEEDED
--- NOTE | 2019-07-01 16:08 | NUR ---
[facility] TO [facility] ORDERS, ORDERS CLARIFIED PER DISCHARGE PAPERS.
== END 2019-07-01 14:35 | DRG 189 ==
LOC: ED 01:59 → CCU 02:00 → MS 09:20
PROVIDERS: ADMIT Internal Medicine
DX: J96.22 Acute and chronic respiratory failure with hypercapnia (principal); J44.1 Chronic obstructive pulmonary disease with (acute) exacerbation; J96.21 Acute and chronic respiratory failure with hypoxia; J01.40 Acute pansinusitis, unspecified; M47.816 Spondylosis without myelopathy or radiculopathy, lumbar region; Z66 Do not resuscitate; Z79.899 Other long term (current) drug therapy; Z79.51 Long term (current) use of inhaled steroids; Z88.0 Allergy status to penicillin; Z88.2 Allergy status to sulfonamides; Z88.1 Allergy status to other antibiotic agents
CPT/HCPCS: 36600; 71045; 80053; 82803; 83735; 83880; 84484; 85025; 87502; 93005; 93010; 94640; 94645; 94660; 94668; 94760; 96374; 96375; 97110; 97116; 97162; 97165; 97530; 99285-25; J0456; J1650; J2930; J7060; J7121; J7512; Q0177

== ENCOUNTER 2019-08-16 17:56 | Observation (INO) | payer MEDICARE, MEDICAID ==
[~2019-08-16] VITALS: Ht 157.5 cm; Wt 83.7 kg
[~2019-08-16 17:56] MED LIST changes: +ALBUTEROL1.25 MG/3 NEB; +HYDROXYZINE PAM25 MG PO; +SUDOGEST30 MG PO
[2019-08-16] MEDS ORDERED: SPIRIVA RESPIMAT4 GM INH (18:09)
--- NOTE | 2019-08-17 00:30 | NUR ---
pt ASSESSMENT COMPLETE. pt RATES PAIN 4/10 "FROM BREATHING AND LEFT HIP, GOING TO BE MY BACK IF I DON'T GET TYLENOL". PRN TYLENOL ADMINISTERED. pt ANXIOUS, SOB. PRN NEB TREATMENT FROM RT COMPLETE. WHEEZES AUSCULTATED THROUGHOUT ALL LOBES. PRN MEDICATION FOR CONGESTION ADMINISTERED. ICE WATER AND HOT TEA PROVIDED. pt WITH OCCASIONAL CONGESTIVE COUGH. CALL LIGHT IN REACH, pt VERBALIZES UNDERSTANDING TO USE CALL LIGHT PRIOR TO GETTING OUT OF BED. BED ALARM ON FOR pt SAFETY.
--- NOTE | 2019-08-17 02:23 | NUR ---
BED ALARM SOUNDING. pt SHIFTING IN BED. DENIES TOILETING NEEDS. CRACKERS PROVIDED REQUESTED. CALL LIGHT IN REACH. BED ALARM ON.
--- NOTE | 2019-08-17 04:18 | NUR ---
CHECKED ON pt. RESTING IN BED WITH EYES CLOSED, RR 16. BED ALARM ON. HOB ELEVATED. CALL LIGHT IN REACH.
--- NOTE | 2019-08-17 05:22 | NUR ---
PHONE CALL TO TELE PHARMACY TO AMEND ORDER OF GABAPENTIN.
--- NOTE | 2019-08-17 05:45 | NUR ---
PRN GABAPENTIN ADMINISTERED REQUESTED BY pt. 1PA OUT OF BED TO RESTROOM FOR VOID AND BACK TO BED. pt AMBULATING AROUND ROOM, TO WINDOW, DOOR, RESTROOM. DENIES SOB WITH AMBULATION, CARRYING ON CONVERSATION. BACK IN BED, CALL LIGHT IN REACH. BED ALARM ON. BREAKFAST ORDER PLACED.
--- NOTE | 2019-08-17 06:04 | NUR ---
pt ON RA THROUGHOUT SHIFT. WHEEZES HEARD THROUGHOUT LUNG LOBES. PRN PAIN MEDICATION FOR CHRONIC PAIN. PRN ANXIETY MEDICATION X 1. pt RESTED FOR PART OF SHIFT. PRN MDI Q2H PER pt REQUEST. SBA TO RESTROOM. ALERT AND ORIENTED X 4. BED ALARM ON FOR pt SAFETY.
--- NOTE | 2019-08-17 07:15 | NUR ---
REPORT RECEIVED FROM MAGY VIVEROS. PT RESTING IN BED ON RIGHT SIDE. PT DENIES PAIN AND NAUSEA. PT IS ANTICIPATING BREATHING TREATMENT SOON. NO ADDITIONAL REQUESTS OR COMPLAINTS AT THIS TIME. CALL LIGHT WITHIN REACH.
--- NOTE | 2019-08-17 07:53 | EKG ---
[facility] [address] [place], [place] [address] Signed Sinus tachycardia Otherwise normal ECG When compared with ECG of 27-JUN-2019 09:53, No significant change was found Confirmed by MELLISA WELLER MD ([id number]) on 08/17/2019 7:52:56 AM Electronically Signed By: MELLISA WELLER MD 08/17/19 0753 PATIENT NAME: BRISEIDA QUIROZ Electrocardiogram DATE OF : 48 PHYSICIAN: MELLISA WELLER MD REPORT #: [id number] REPORT IS CONFIDENTIAL AND NOT TO BE RELEASED WITHOUT AUTHORIZATION
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
--- NOTE | 2019-08-17 09:21 | NUR ---
MORNING ASSESSMENT AND MEDICATION DUE. PT RESTING IN BED. PT REQUESTS A SHOWER.ASSESSMENT DONE. EXPIRATRY WHEEZES THROUGHOUT, TIGHT LUNG SOUNDS. TACHYCARDIA NOTED. PT REPORTS GENERALIZED PAIN, SEE MAR FOR MEIDCATION GIVEN. PT UP FOR SHOWER WITH SBA, AFTER SHOWER O2 SATURATION 97% ON ROOM AIR. WHEEZES CONTINUE WITH OCCATIONAL COUGHING FITS. LINENS CHANGED. FRESH GOWN AND SOCKS APPLIED. PT UP TO CHAIR. MEDICATION GIVEN. NO ADDITIONAL REQUESTS OR COMPLAINTS. CALL LIGHT WITHIN REACH.
[2019-08-17] MEDS ORDERED: DOXYCYCLINE HY100 MG PO (09:58)
[2019-08-17] MEDS ORDERED: PREDNISONE20 MG PO (10:01)
[2019-08-17] MEDS ORDERED: REQUIP3 MG PO (10:26)
[2019-08-17] MEDS ORDERED: PULMICORT0.5 MG/2 M INH (10:27)
[2019-08-17] MEDS ORDERED: MUCINEX DM ER1 EAC1 PO (10:41)
--- NOTE | 2019-08-17 10:41 | NUR ---
MED REC COMPLETE
--- NOTE | 2019-08-17 11:15 | NUR ---
THIS RN TO ROOM TO CHECK ON PT. PT REPORTS 4/10 PAIN BUT STATES "ITS DOING OK, JUST A WARM BLANKET WOULD BE GOOD." WARM BLANKET PROVIDED. PT REQUESTS TIME TO REST WITHOUT VISITORS. RT CALLED FOR INHALER, GIVEN. NAP TIME SIGN PLACED ON DOOR SO PT CAN REST. WATER REFILLED. PT DECLINES VOIDING AT THIS TIME. WILL CONTINUE TO MONITOR. CALL LIGHT WITHIN REACH. NO ADDITIONAL REQUESTS OR COMPLAINTS AT THIS TIME.
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
--- NOTE | 2019-08-17 11:57 | NUR ---
PT FINISHED WITH LUNCH AND STATES SHE IS READY TO GO HOME. PT REQUESTS HER BE CALLED. SHAZIA, CALLED AND STATES HE WILL BE HERE AT 1300. NO [facility] REQUESTS OR COMPLAINTS AT THIS TIME.
[2019-08-17] MEDS ORDERED: VENTOLIN HFA18 GM INH (12:09)
--- NOTE | 2019-08-17 12:09 | NUR ---
PT READY FOR DISCHARGE. VITALS TAKEN. IV ASSESSED, WNL, TIP INTACT, GAUZE AND COBAN APPLIED. DISCHARGE INSTRUCTIONS REVIEWED WITH PT. PT VERBALIZES UNDERSTANDING OF DISCHRAGE INSTRUCTIONS, MEDICATIONS, AND FOLLOW UP APPOINTMENT. PHARMACIST IN TO VISIT WITH PT. PT VERBALIZES STATES HER QUESTIONS ABOUT MEDICATIONS HAVE BEEN ANSWERED. PT UP TO DRESS SELF. STEADY ON FEET WITH SBA. NO ADDITIONAL REQUESTS OR COMPLAINTS, PT WHEELED FROM MED/SURG.
--- NOTE | 2019-08-17 12:20 | NUR ---
PT STATES "IF YOU DON'T GIVE ME THE HYDROXAZINE I WILL BE RIGHT BACK TO THE ER IN 20MINUTES." MD NOTIFIED, RX WRITTEN AND SENT TO [facility]. PT UPDATED AND STATES GRATITUDE FOR RX. NO ADDITIONAL REQUESTS OR COMPLAINTS.
--- NOTE | 2019-08-17 12:30 | NUR ---
PT WHEELED TO FRONT TO MEET . ITEMS RETRIEVED FROM [facility]. MONEY COUNTED BY MAGY DILLON AND PT WHO STATES ALL HER MONEY IS ACCOUNTED FOR. PT TRANSFERES SELF INTO CAR. NO ADDITIONAL REQUESTS OR COMPLAINTS.
[2019-08-17] MEDS ORDERED: HYDROXYZINE PAM25 MG PO (12:35)
== END 2019-08-17 12:30 | disposition home or self-care (01) ==
LOC: ED 17:56 → MS 17:57
PROVIDERS: ADMIT Internal Medicine
DX: J44.9 Chronic obstructive pulmonary disease, unspecified (principal); J32.4 Chronic pansinusitis; T50.915A Adverse effect of multiple unspecified drugs, medicaments and biological substances, initial encounter; G25.81 Restless legs syndrome; Z87.891 Personal history of nicotine dependence; Z88.0 Allergy status to penicillin; Z88.2 Allergy status to sulfonamides; Z91.013 Allergy to seafood; Z91.012 Allergy to eggs; Z88.1 Allergy status to other antibiotic agents; Z88.8 Allergy status to other drugs, medicaments and biological substances
CPT/HCPCS: 36415; 71045; 80048; 80053; 83605; 83735; 83880; 84100; 84484; 85025; 87040; 87502; 93005; 93010; 94640; 94644; 94760; 96372; 96374; 99285-25; G0378; J1650; J2930; J7512; Q0177

== ENCOUNTER 2019-09-19 21:29 | Inpatient (IN) | payer MEDICARE, MEDICAID, OTHER ==
[~2019-09-19] VITALS: Ht 157.5 cm; Wt 86.2 kg
[~2019-09-19 21:29] MED LIST changes: +MUCINEX DM ER1 EAC1 PO; +PULMICORT0.5 MG/2 M INH; +REQUIP3 MG PO; +SPIRIVA RESPIMAT4 GM INH
--- NOTE | 2019-09-19 23:41 | NUR ---
2315 PATIENT ARRIVED TO THE UNIT VIA STRETCHER. PATIENT WAS ABLE TO ROLL TO THE BED FROM THE STRETCHER. PATIENT DOES NOT FOLLOW INSTRUCTIONS. ANSWERS TO HER NAME, DOES NOT ANSWER ORIENTATION QUESTIONS. VS STABLE. HR ELEVATED 120'S. RR 20'S, O2 SAT 93% ON 3L NC. LUNG SOUNDS ARE WHEEZING THROUGHOUT, AND TIGHT IN THE BASES. PATIENT IS DROSWEY AND RESTLESS. DIFFICULT TO ASSESS SKIN DUE TO NONCOMPLAINCE. PATIENT REFUSING TO TAKE HER SWEAT PANTS OFF. SCHEUDLED MEDS GIVEN. IV FLUIDS PER ORDER. PATIENT TOOK PO PILLS WITHOUT ISSUE.
--- NOTE | 2019-09-20 02:00 | NUR ---
PATIENT HAS BEEN LESS RESTLESS IN THE LAST 30 MINS. APPEARS TO BE RESTING COMFORTABLY. RR 18. O2 SAT 96% ON 3L NC. PATIENT HAS YET TO VOID. NO SIGNS OF INCONTINENCE NOTED. IV FLUIDS PER ORDER, SITE WNL.
--- NOTE | 2019-09-20 04:11 | NUR ---
PATIENT WOKE TO PRESSURE AND SOUND. WHEN ASKED IF SHE NEEDED TO VOID PATIENT STATED "NO". HOWEVER, PATIENT DOES NOT ANSWER ANY ORIENTATION QUESTIONS AND QUICKLY APPEARS TO FALL BACK TO SLEEP. BLADDER SCAN READ 386 ML. PATIENT HAS NOT BEEN INCONTINENT OF URINE. VS STABLE. 02 TITRATED TO 2L NC. O2 SATS >95%. RR 16. IV FLUIDS PER ORDER, SITE WNL.
--- NOTE | 2019-09-20 06:30 | NUR ---
PATIENT CONTINUES TO BE DROWSY. PATIENT STATES "IN HELL" WHEN ASKED IF SHE KNOWS WHERE SHE IS. PATIENT UNWILLING TO OPEN HER EYES OR ANSWER ORIENTATION QUESTIONS. PATIENT TELLS STAFF TO LEAVE HER ALONE AND USES PROFANITY. PATIENT BLADDER SCANNED 444 MLS NOTED. REPORTED TO MD. NO NEW ORDERS. SECOND IV SITE ESTABLISHED. PATIENT TOLERATED WELL. PATIENT ON ROOM AIR FOR 3-5 MINS, DOWN TO 88% 02 SAT. 2L NC PLACED.
--- NOTE | 2019-09-20 06:58 | EKG ---
[facility] [address] [facility] [address] [place], [place] [address] Signed Undetermined rhythm Low voltage QRS Nonspecific ST abnormality Abnormal ECG When compared with ECG of 16-AUG-2019 18:11, Sinus tachycardia Confirmed by MELLISA WELLER MD ([id number]) on 09/20/2019 6:58:01 AM Electronically Signed By: MELLISA WELLER MD 09/20/19 0658 PATIENT NAME: RICHIEBRISEIDA Electrocardiogram DATE OF : 48 PHYSICIAN: MELLISA WELLER MD REPORT #: [id number] REPORT IS CONFIDENTIAL AND NOT TO BE RELEASED WITHOUT AUTHORIZATION
--- NOTE | 2019-09-20 08:00 | NUR ---
RESTLESS, ATTEMPTING TO GET OOB. ASSISTED PATIENT TO COMMODE. IS VERY UNSTEADY ON FEET. IS DISORIENTED TO TIME. IS VERY IMPULSIVE. NEEDS FIRM DIRECTION. VOIDED DARK BALTAZAR URINE THE BACK TO BED. ASSESSMENT DONE.
--- NOTE | 2019-09-20 08:05 | NUR ---
C/O LEG PAIN R/T RESTLESS LEGS. REQUESTING MEDICATION.
--- NOTE | 2019-09-20 08:15 | NUR ---
DR. WELLER HERE TO SEE PATIENT, ORDERS RECIEVED TO INCREASE DIET TO REGULAR TOLERATED.
--- NOTE | 2019-09-20 08:20 | NUR ---
VISTARIL 25 MG PO GIVEN FOR RESTLESSNESS.
--- NOTE | 2019-09-20 08:40 | NUR ---
REQUIP 1 MG PO GIVEN.
--- NOTE | 2019-09-20 09:00 | NUR ---
OOB TO CHAIR WITH ASSIST FOR BREAKFAST. CONTINUES TO NEED FIRM DIRECTION. IS HAVING DIFFICULTY FOLLOWING DIRECTIONS.
--- NOTE | 2019-09-20 09:30 | NUR ---
TOOK BREAKFAST FAIR. BACK TO BED. REMAINS UNSTEADY ON FEET.
--- NOTE | 2019-09-20 10:00 | NUR ---
NAPPING, NO DISTRESS NOTED.
--- NOTE | 2019-09-20 12:00 | NUR ---
SLEEPING, NOON ASSESSMENT HELD. RESP ARE EQUAL, NON-LABORED. O2 AT 2 L NC. SAT-92-95% .
--- NOTE | 2019-09-20 15:30 | NUR ---
AWAKE UP TO COMMODE WITH ASSIST.
--- NOTE | 2019-09-20 17:40 | NUR ---
SITTING UP IN BED FOR DINNER. IS SHAKEY AT TIMES. IS TALKING ABOUT HOW BAD THINGS ARE IN HER LIFE. TALKED WITH PATIENT ABOUT THIS.
--- NOTE | 2019-09-20 18:30 | NUR ---
ATTEMPING TO GET OOB. BED ALARM GOING OFF. ASSISTED PATIENT TO CHAIR. O2 INCREASED TO 3 L NC O2 SAT 88.
--- NOTE | 2019-09-20 19:04 | NUR ---
sitting up in chair to eat more food. REPORT TO NEXT SHIFT.
--- NOTE | 2019-09-20 20:15 | NUR ---
SHIFT REPORT RECEIVED FROM MAGY SANTANA. PT ASSISTED BACK TO BED FROM CHAIR. SHE REPORTS FEELING "WORN OUT" AND APPEARS LETHARGIC, IS ORIENTED AND FOLLOWING COMMANDS. REPORTS 10/10 PAIN TO LEFT RIBS/SIDE WITH COUGHING. PRN TYLENOL GIVEN, AFEBRILE. LUNGS SOUNDS HAVE WHEEZES THROUGHOUT, 3L O2 VIA NC IN PLACE, PT REPORTS FEELING SOB AT REST. REQUESTS SOMETHING FOR COUGH, INFORMED HER IT IS AVAILABLE AGAIN AT 2200. HR REGULAR, TACHY 100-110'S. BOWEL TONES ACTIVE, DENIES NAUSEA. SKIN GROSSLY INTACT, NO EDEMA NOTED. IV SITES INTACT, FLUSH EASILY, SALINE LOCKED. PT DENIES OTHER REQUESTS AT THIS TIME. CALL LIGHT WITHIN REACH, BED ALARM ON FOR SAFETY.
--- NOTE | 2019-09-20 22:13 | NUR ---
IN TO GIVE SCHEDULED MEDS, WAS GOING TO GIVE PT MUCINEX, PER EARLIER REQUEST, BUT SHE IS SLEEPING SOUNDLY AT THIS TIME. NO APPARENT DISTRESS, RESPIRATIONS EVEN AND UNLABORED, RR: 18, HR: 100, SPO2: 97% ON 3L. WILL ALLOW FOR REST AT THIS TIME AND CONTINUE TO MONITOR.
--- NOTE | 2019-09-21 00:09 | NUR ---
PT SLEEPING, WOKE BRIEFLY WHILE I WAS IN ROOM. LUNGS SOUND MORE CLEAR, NO WHEEZE HEARD AT THIS TIME, 3L O2 REMAINS IN PLACE. HR REGULAR, RATE IN 90'S. PT APPEARS COMFORTABLE, NO APPARENT DISTRESS. WILL ALLOW FOR REST AND CONTINUE TO MONITOR. BED ALARM REMAINS ON FOR SAFETY.
--- NOTE | 2019-09-21 01:10 | NUR ---
PT CALLED TO REPORT FEELING COLD, WARM BLANKETS PROVIDED. PT DECLINES NEED TO USE BATHROOM AT THIS TIME. NO OTHER REQUESTS, CALL LIGHT REMAINS WITHIN REACH. BED ALARM ON.
--- NOTE | 2019-09-21 04:30 | NUR ---
ASSESSMENT COMPLETED. PT GIVEN TYLENOL AND MUCINEX FOR COUGH AND LEFT-SIDED RIB PAIN RELATED TO COUGH. PT ALSO COMPLAINING OF BACK PAIN. WHEN NOTIFIED THAT HER GABAPENTIN ISN'T DUE UNTIL 0900, PT STARTED TO BECOME AGITATED AND UPSET, BELIEVING THAT SHE SHOULD HAVE GOTTEN DOSES DURING THE NIGHT AND THAT SHE HAS GONE TOO LONG WITHOUT IT. I EXPLAINED TO HER HOW THE "4 TIMES A DAY" SCHEDULING IS ORDERED AND EXPLAINED THAT I WOULD ASK DR. DU FOR AN ADDITIONAL DOSE. HOWEVER, IN THIS TIME, PT STARTED TO CALL HER STATING THAT SHE WOULD JUST GET SOME FROM HOME. DR. DU CALLED AND ORDER RECEIVED FOR ONE-TIME DOSE OF GABAPENTIN; PT NOTIFIED AND QUICKLY CALMED DOWN. LUNGS REMAIN CLEAR, 3L O2 VIA NC, SOB AT REST. HR REGULAR, RATE 85-90'S. PT UP TO BSC TO VOID WITH SBA, REMAINS UNSTEADY ON HER FEET. NO OTHER CHANGES FROM PREVIOUS ASSESSMENTS, BED ALARM RE-SET FOR SAFETY. .
--- NOTE | 2019-09-21 06:04 | NUR ---
PT CALLED TO REPORT THAT HER BACK PAIN WAS NOT BETTER AND DID NOT BELIEVE THAT I HAD GIVEN HER GABAPENTIN. I ASSURED HER THAT I DID AND CLARIFIED THAT IT WAS 300MG; PT STATES SHE TAKES 600MG AT HOME. DR. DU CALLED AND ADDITIONAL ONE TIME ORDER OF 300MG GABAPENTIN ORDERED AND GIVEN. DR. DU TO CHANGE SCHEDULED DOSE TO HER HOME DOSE. PT REPORTS FEELING SOB, R.T. CALLED TO GIVE PRN NEB. NO OTHER REQUESTS AT THIS TIME.
--- NOTE | 2019-09-21 07:00 | NUR ---
Report received, orders acknowledged.
--- NOTE | 2019-09-21 07:47 | NUR ---
Patient sleeping on left side, respirations even and unlabored. SpO2 of 90% with 2L oxymask in place. Call light within reach.
--- NOTE | 2019-09-21 07:47 | NUR ---
Report received, orders acknowledged.
--- NOTE | 2019-09-21 07:51 | NUR ---
Patient sleeping on right side, respirations even and unlabored. SpO2 of 91% on 3LNC. Call light within reach.
--- NOTE | 2019-09-21 08:44 | NUR ---
RT in room administering neb tx
--- NOTE | 2019-09-21 09:30 | NUR ---
Patient sitting up in bed, awake and alert. AM medications given, assessment complete. Vital signs taken. Cold cloth given to patient to wash face. Hygiene care completed. Patient up to chair with 1PA. Warm blankets and warm pack provided. 3LNC in place with an SpO2 of 96%. Patient SOB with exertion, which is relieved after sitting in chair for a minute. Breakfast ordered, patient denies further needs. Call light within reach.
--- NOTE | 2019-09-21 11:20 | NUR ---
AMBULATED WITH WALKER APPROX 10 YARDS, SAT IN CHAIR. O2 AT [address] UPON SITTING IN CHAIR, PATIENT THEN HAD "BLACKOUT SPELL" PATIENT BACK TO ROOM. O2 SAT-95. BP-115/66. HR 101. AFTER APPROX 3 MIN, PATIENT AWAKE AND ABLE TO FOLLOW COMMANDS AND ANSWERE QUESTIONS. PATIENT STATES SHE HAS HAD EPISODES OF BLACKOUTS FOR SEVERAL YEARS. PATIENT HAS BEEN SEEN BY A NEUROLOGIST IN THE PAST. NO FUTHER TREATMENT.
[2019-09-21] MEDS ORDERED: ANORO ELLIPTA1 EACH INH (11:31)
[2019-09-21] MEDS ORDERED: DULOXETINE HCL30 MG PO (11:33)
[2019-09-21] MEDS ORDERED: ROPINIROLE HCL3 MG PO (11:34)
--- NOTE | 2019-09-21 11:45 | NUR ---
Bedside report given to MAGY Ballard. Patient transferred to M/S unit via chair. All patient belongings collected.
--- NOTE | 2019-09-21 11:45 | NUR ---
TESSALON PERLES 200 MG AND ROBITUSSIN 10 ML GIVEN FOR COUGH.
--- NOTE | 2019-09-21 12:10 | NUR ---
PT AMBULATES MOST OF THE WAY FROM CCU TO MED-SURG. RECOGNIZES THIS CUTTER AND PRESSER FROM PREVIOUS STAYS. ORIENTED TO ROOM, REMINDED TO CALL FOR ASSIST, CALL LIGHT IN HAND. PT PLACED ACROSS FROM RN STATION FOR SAFETY. PT DENIES SOB OR OTHER DISCOMFORTS, SITTING UP IN THE CHAIR, LUNCH IS SERVED
--- NOTE | 2019-09-21 14:02 | NUR ---
I AM UNABLE TO VISIT PT DUE TO PROCEDURE. WILL FOLLOW
--- NOTE | 2019-09-21 14:08 | NUR ---
PT TOLERATES 100% OF NOON MEAL, REMAINS UP IN THE CHAIR. PUZZLES, CARDS, AND READING MATERIALS PROVIDED. [address] 3LPM NC.
--- NOTE | 2019-09-21 14:49 | NUR ---
ADMINISTERED SCHEDULED MEDICATIONS. PT ON PHONE TALKING TO SOMEONE ABOUT HOW SHE " SEVERAL TIMES" AFTER SHE CALLED EMS, BETWEEN THEN AND GETTING TO HER CURRENT ROOM.
--- NOTE | 2019-09-21 15:42 | NUR ---
PT CONTINUES UP IN THE CHAIR SELF ENTERTAINING WATCHING TV, COLORING. SHE REQUESTS COUGH SURYP COUGH IS NAGGING DRY AND TIGHT. ROBITUSSIN ADMINISTERED. NO C/O SOB, PAIN, OR OTHER DISCOMFORTS.
--- NOTE | 2019-09-21 17:11 | NUR ---
MED REC COMPLETE
--- NOTE | 2019-09-21 18:41 | NUR ---
PT CONTINUES UP IN THE CHAIR WATCHING TV. USES CALL LIGHT APPROPRIATELY FOR REQUESTS.
--- NOTE | 2019-09-21 18:43 | NUR ---
PATIENT IN CHAIR WATCHING TV. FRESH ICE GIVEN. CALL LIGHT IN REACH. NO FURTHER NEEDS AT THIS TIME.
--- NOTE | 2019-09-21 19:00 | NUR ---
pt UP AT DOORWAY. RNS ENTER ROOM. pt VERBALIIZES UNDERSTANDING TO USE CALL LIGHT, REQUESTING "SOMETHING CRUNCHY". CRACKERS PROVIDED. 3L OXYGEN BY NC IN PLACE. DENIES SOB OR ADDITIONAL NEEDS.
--- NOTE | 2019-09-21 20:45 | NUR ---
pt ASSESSMENT COMPLETE. VSS. EXW RLL, LUNG SOUNDS CLEAR/DIMINISHED OTHERWISE. pt COUGHING, PRN MEDICATION ADMINISTERED. 3L OXYGEN BY NC IN PLACE. CALL LIGHT IN REACH. NO ADDITIONAL REQUESTS.
--- NOTE | 2019-09-21 21:45 | NUR ---
PT REQUESTED AND RECEIVED HOT WATER, SUGAR PACKETS, ICE TEA.
--- NOTE | 2019-09-21 21:52 | NUR ---
PT USED CALL LIGHT, RN ENTERED ROOM TO SEE INCONT WIPES WITH RED SUBSTANCE LAYING ON TABLE. PT STATED SHE "WIPED" WHEN SHE FELT "MOISTURE". STATED IT WAS FROM "DOWN THERE", SHE POINTED TO [place] AREA. THIS RN REQUESTED TO SEE WHERE THE BLEEDING WAS COMING FROM SHE REFUSED, SAID MAYBE ITS GONE. HAD HER WIPE ONE MORE TIME, WHILE LESS ON THE WIPE, IT WAS STILL RED. AGAIN REFUSED TO HAVE RN EVUALATE, TOLD PT WILL LET PRIMARY RN KNOW.
--- NOTE | 2019-09-21 22:03 | NUR ---
LEAN SIX SIGMA SENIOR SPECIALIST REPORTED PT ATTEND HAD BRIGHT RED BLOOD. PT, AFTER REQUESTING $50.00 EACH TO LOOK, ALLOWED THIS RN AND PT PRIMARY TO ASSESS. NO VISABLE BLEEDING IN RECTUM AREA, URINE IS WITHOUT SIGNS BLEEDING, STATES IT WAS COMING FROM THE FRONT. PT STATED THAT SHE MAY HAVE SCRATCHED SELF. LEAN SIX SIGMA SENIOR SPECIALIST ASSISTING PT IN BATHROOM.
--- NOTE | 2019-09-21 22:05 | NUR ---
pt UP TO RESTROOM, SBA WITH THALIA NEHEMIASLUIS EDUARDO. BLOOD NOTED ON BATH WIPES. NO SKIN BREAKDOWN NOTED. pt STATES "I COULD HAVE SCRATCHED MYSELF, I DON'T KNOW". THALIA ZHAO REMAINS IN ROOM.
--- NOTE | 2019-09-21 23:11 | NUR ---
CALL LIGHT ANSWERED. PRN TYLENOL ADMINISTERED FOR PAIN REQUESTED BY pt "120/10" IN NECK, BACK. CALL LIGHT IN REACH.
--- NOTE | 2019-09-22 00:02 | NUR ---
IN pt ROOM FOR SCHEDULED MEDICATION ADMINISTRATION, PRN ANXIETY MEDICATION ADMINISTERED REQUESTED. SANDWICH BOX PROVIDED. CALL LIGHT IN REACH.
--- NOTE | 2019-09-22 01:40 | NUR ---
1 SBA TO THE BATHROOM USING WALKER. PATIENT C/O DIZZINES. PRIMARY RN WAS WITH PATIENT.
--- NOTE | 2019-09-22 01:43 | NUR ---
pt UP TO RESTROOM SBA FWW WITH THALIA ZHAO AND BACK TO BED. pt C/O DIZZINESS AMBULATING BACK TO BED. RN IN ROOM. ASSESSMENT COMPLETE. LUNG SOUNDS DIMINISHED, EXW RIGHT MIDDLE AND LOWER LOBES. pt DENIES SOB AT REST. TEA PROVIDED. CALL LIGHT IN REACH.
--- NOTE | 2019-09-22 04:47 | NUR ---
pt SLEEPING. AWAKENS TO VOICE. VSS. SCHEDULED MEDICATIONS ADMINISTERED. LIGHTS OFF IN ROOM. CALL LIGHT IN REACH.
--- NOTE | 2019-09-22 07:27 | NUR ---
REPORT RECIEVED FROM MAGY VIVEROS, PATIENT IS SLEEPING WITH EVEN RESPIRATIONS.
--- NOTE | 2019-09-22 07:54 | NUR ---
PATIENT SITTING AT BEDSIDE TO EAT BREAKFAST, WEARING O2 @ 3L, PATIENT REPORTS NO HOME OXYGEN. PATIENT DENIES OTHER NEEDS AT THIS TIME.
--- NOTE | 2019-09-22 09:40 | NUR ---
PATIENT SITTING UP IN CHAIR. PATIENT TOOK A SHOWER. LINENS CHANGED. VITAL SIGNS AND I&O DONE. CALL LIGHT WITHIN REACH. NO OTHER NEEDS AT THIS TIME
--- NOTE | 2019-09-22 09:53 | NUR ---
PATIENT UP TO CHAIR, SEEMS TO BE DOING WELL.
--- NOTE | 2019-09-22 10:20 | NUR ---
No new issues. Cont. to blame her respiratory issues on her husbands smoking, mold in her RV, Ish Murphy for discharging her without 02. Again discussed, patients must qualify for 02. If they do not qualify, medicare will not pay for oxygen. Pt does states she is able to walk now without her walker following rehab from [facility].
--- NOTE | 2019-09-22 11:10 | NUR ---
PT SITTING IN CHAIR-APPEARS TO REMEMBER ME FROM PREVIOUS ADMITS. PT SEEMS ALERT, ORIENTED AND READY TO ENGAGE IN CONVERSATION. PTS' SUBJECT MATTER TO BOUNCE ALL AROUND. SHIFTING GEARS TO VARIED TOPICS. COVID SEEMS TO BE AN ATTRACTION-GIVING HER ASSESSMENT ON WHAT WILL END THE VIRUS.THIS SEEMS TO BE A DOWN TURN FROM PREVIOUS VISITS IN HER COGNITIVE ABILITY. APPEARS TO BE INTRIQUED BY "THE LORD'S PRAYER" AND REQUESTED WE PRAY TOGETHER. PT STATES THAT IF EVERYONE WERE TO SAY THIS PRAYER OVER AND OVER,THINGS WILL CHANGE IN OUR WORLD. WILL FOLLOW
--- NOTE | 2019-09-22 11:46 | NUR ---
PATIENT UP TO CHAIR TO EAT LUNCH. PRN TYLENOL AND COUGH MEDICATION GIVEN WITH NOON GABAPENTIN. PATIENT CONTINUES ON 3L OF OXYGEN.
--- NOTE | 2019-09-22 13:15 | NUR ---
PATIENT SITTING UP IN CHAIR. VITAL SIGNS AND I&O DONE. CALL LIGHT WITHIN REACH. NO OTHER NEEDS AT THIS TIME
--- NOTE | 2019-09-22 13:43 | NUR ---
PATIENT HAVING ECHO ULTRASOUND AT THIS TIME.
--- NOTE | 2019-09-22 15:46 | NUR ---
PATIENT UP TO VOID, MEDICATIONS GIVEN, SEEMS TO BE IN GOOD MOOD.
--- NOTE | 2019-09-22 17:09 | NUR ---
PATIENT SITTING UP IN CHAIR. VITAL SIGNS AND I&O DONE. CALL LIGHT WITHIN REACH. NO OTHER NEEDS AT THIS TIME
--- NOTE | 2019-09-22 19:15 | NUR ---
SHIFT REPORT RECEIVED FROM DAYSWAFT MAGY GOMEZ AT BEDSIDE. PT AWAKE AND RESTING IN BED, RECENTLY VOIDED 500MLS. FRESH ICE TO DRINK PROVIDED PER PT REQUEST, BOARD UPDATED. NO ADDITIONAL NEEDS, CALL LIGHT IN REACH.
--- NOTE | 2019-09-22 20:09 | NUR ---
PATIENT SITTING UP IN BED, WATCHING TV, JUST FINISHED A BREATHING TREATMENT. PATIENT PERFORMED PM CARE. FRESH ICE WATER AT BEDSIDE. CALL LIGHT IN REACH. BED RAILS UP X2. NO FURTHER NEEDS AT THIS TIME.
--- NOTE | 2019-09-22 20:40 | NUR ---
SCHEDULED GABAPENTIN GIVEN (SEE EMAR). PT RESTING IN BED AND WATCHING TELEVISION. NO ADDITIOANL NEEDS AT THIS TIME. CALL LIGHT IN REACH.
--- NOTE | 2019-09-22 21:30 | NUR ---
THIS RN IN ROOM TO ROUND ON PT. PT STANDING IN ROOM AND WANDERING LOOKING FOR BLACK READING GLASSES. GLASSES FOUND ON PT'S GOWN COLLAR. 3LNC REMAINS IN PLACE, PT RESTING IN BED NOW. NO ADDITIOANL NEEDS, PT A/O AT THIS TIME. NO CONFUSION NOTED. WILL MONITOR. BED ALARM ON TO ENSURE SAFETY. CALL LIGHT IN REACH.
--- NOTE | 2019-09-22 21:50 | NUR ---
ASSESSMENT COMPLETE, SCHEDULED MEDS GIVEN (SEE EMAR). IV SITE WNL, DRESSING INTACT. VSS, 3LNC IN PLACE. LUNG SOUNDS CLEAR, WILL MONITOR FOR CHANGES. NO ADDITIOANL NEEDS AT THIS TIME. BED ALRM REMAINS ON, CALL LIGHT IN REACH.
--- NOTE | 2019-09-22 22:15 | NUR ---
PT REQUESTING SNACK, THALIA STANFORD RETRIEVING SANDWHICH BOX AT THIS TIME, NO FURTHER NEEDS. CALL LIGHT IN REACH.
--- NOTE | 2019-09-23 00:12 | NUR ---
PT AWAKE AND RESTING IN BED, WATCHING TELEVISION. DENIES NEEDS, CALL LIGHT IN REACH.
--- NOTE | 2019-09-23 04:46 | NUR ---
ASSESSMENT COMPLETE, SCHEDULED GABAPENTIN GIVEN (SEE EMAR). VSS AND I&O'S COMPLETE AND STABLE. PT DROWSY, BUT A/O. NO PAIN OR NAUSEA REPORTED, BASELINE NUMBNESS AND TINGLING NOTED TO BLE. 3LNC REMAINS IN PLACE, PT REPORTS SOB WITH EXERTION. LUNG SOUNDS CLEAR, WHEEZE NOTED TO LEFT UPPER LUNG. CALL LIGHT IN REACH.
--- NOTE | 2019-09-23 05:57 | NUR ---
CALL LIGHT ANSWERED. 1PA TO RESTROOM FOR VOID AND BACK TO BED, GAIT UNSTEADY. pt RESTING IN BED. ICED TEA PROVIDED. CALL LIGHT IN REACH.
--- NOTE | 2019-09-23 07:13 | NUR ---
Recieved report from Comfort Duarte RN. Introduced self to patient. Denies needs at this time. Call light in reach. Bed rails up X2. Bed alarm on.
--- NOTE | 2019-09-23 08:18 | NUR ---
Patient ambulating in room with this nurse and other staff member in room. Had been ambulating with steady gait. Suddenly loses balances, stumbles 3-4 steps. leans forward on couch in room, then falls to buttocks. No injuries noted. States L knee feels like it twisted a bit. No swelling noted. States pain is minimal. Assist off floor with 2 staff members. Return to bed with assist. States floor moved like an earthquake. No movement felt by any others. Informed to continue laying in bed and not to shower at this time until she is rested.
--- NOTE | 2019-09-23 08:30 | NUR ---
Discussed in IDT with Dr. Tolentino at 0830. Later spoke with pt in the cam as she is attempting to walk during Qualifyer. Pt repeatedly asked by RT and PT to not talk, but continues to ask me questions. Informed I will visit her in her room later.
--- NOTE | 2019-09-23 08:51 | NUR ---
INFORMED DR. DU OF PATIENT FALL. NO NEW ORDERS AT THIS TIME.
--- NOTE | 2019-09-23 11:20 | NUR ---
Called RT as there is not an 02 qualifier in [employer]. He staes he will return and complete, as pt was unable to walk for the qualifier. He and PT will attempt again shortly.
--- NOTE | 2019-09-23 14:19 | NUR ---
Notified by Dr. Tolentino, pt will not dc today and will need to go to a SNF. She is unable to walk at this point without assist. Chart: progress notes, H&P, covid test, PT notes, 02 qualifier, and face sheet faxed to [facility]. Message left for Bennie asking if they could take this pt. tomorrow for deconditioning.
--- NOTE | 2019-09-23 15:27 | NUR ---
BASED ON HISTORY OF ADMISSIONS AND PATIENTS LEVEL OF DYSPNEA IT IS RECOMENDED THAT SHE GO HOME EXJASPREETDASIAMARJ ON NEBULIZOR MEDICATIONS FOR HER BREATHING. RT HAS CONDUCTED REST AND EXERCISE OXIMETRY TO ASSESS NEED FOR HOME O2. LASTLY, CASE MANAGMENT WAS ENCOURAGED TO CALL DME IN ORDER TO SET UP SCEDULE DELIVERY OF NEBULIZOR CONSUMABLES SO THAT THE PATIENT'S NEB WOULD OPERATE OPTIMALLY.
--- NOTE | 2019-09-23 15:29 | NUR ---
ASSESSMENT COMPLETED. DENIES NEEDS AT THIS TIME. TAKES MEDICATIONS WITHOUT DIFFICULTY. LUNG SOUNDS IMPROVING. CALL LIGHT IN REACH. BED RAILS UP X2.
--- NOTE | 2019-09-23 16:57 | NUR ---
FALL THIS AM. NO FURTHER C/O L KNEE PAIN THROUGHOUT THE DAY. LUNG SOUNDS IMPROVED THROUGHOUT THE DAY. ATTEMPT TO REMOVE OFF OXYGEN TODAY, CONTINUES TO NEED OXYGEN. SL REMAINS IN LFA. AMBULATES IN ROOM WITH 1 PERSON ASSIST AND WALKER. PLAN TO VISIT WITH [facility] TOMORROW FOR PLACEMENT FROM HOSPITAL. CALL LIGHT IN REACH. BED RAILS UP X2.
--- NOTE | 2019-09-23 19:00 | NUR ---
SHIFT REPORT RECEIVED FROM DAYSHIFT MAGY GOTTI AT BEDSIDE. PT AWAKE AND RESTING IN BED EATING ICECREAM. 3LNC IN PLACE, NO DISTERSS NOTED. PT APPEARS COMFORTABLE, BOARD UPDATED. CALL LIGHT IN REACH.
--- NOTE | 2019-09-23 20:05 | NUR ---
ASSESSMENT COMPLETE, SCHEDULED MEDS GIVEN AT THIS TIME ALONG WITH PRN TYLENOL PER PT REQUEST (SEE EMAR). VSS, PT ON 3LNC, LUNG SOUNDS CLEAR. PT REPORTS INCREASING 10/10 PAIN TO LEFT LATERAL/ABDOMEN. PT STATES, "I'VE HAD PAIN FOR YEARS, BUT IS NORMALLY LIKE A BELT ACROSS THE FRONT". PT EASILY DISTRACTED AND INTERACTIVE WITH NURSING STAFF, WILL QUICKLY GO FROM HOLDING HER LEFT SIDE TO WATCHING TELEVISION AND SMILING WITH STAFF. WILL MONITOR FOR CHANGES IN PAIN, HEAT PACK ALSO PROVIDED PER PT REQUEST. PT FIDGETING AND INTERMITENLY RESTLESS, BED ALARM ON TO ENSURE SAFETY. UNABLE TO GIVE PRN VISTARIL AT THIS TIME, WILL MONITOR. NO FURTHER NEEDS, CALL LIGHT IN REACH.
--- NOTE | 2019-09-23 22:29 | NUR ---
THIS RN IN ROOM TO ANSWER CALL LIGHT, FRESH TEA PROVIDED. PT INTERACTIVE WITH NURSING STAFF AND SOMEWHAT FIDGETY IN BED, NO DISTRESS NOTED. PT SHARING PAST EXPERIENCES AT [employer], NO FURTHER NEEDS VERBALIZED. CALL LIGHT IN REACH. BED ALARM ON.
--- NOTE | 2019-09-23 23:30 | NUR ---
PER PT REQUEST I GOT HER A HOT PACK FOR HER WRIST. VERIFIED WITH HER RN FORREST.
--- NOTE | 2019-09-24 00:05 | NUR ---
scheduled gabapentin given along with prn vistaril (see emar). fresh tea given, no additioanl needs or concerns. call light in reach, bed alarm on.
--- NOTE | 2019-09-24 01:33 | NUR ---
HELPED PT TO THE BATHROOM AND BACK TO BED WITH A FWW. BEDSIDE TABLE AND CALL LIGHT IN REACH. PT NEEDS NOTHING MORE AT THIS TIME.
--- NOTE | 2019-09-24 03:14 | NUR ---
PT UP TO VOID SBA WITH FWW, UNSTEADY ON FEET. BACK TO BED, REPORTS INDIGESTION AND STATES, "I USUALLY EAT MAC AND CHEESE OR A BAKED POTATO". SNACK OPTIONS PROVIDED, CHEESE AND CRACKERS GIVEN PER PT REQUEST. TEA REFILLED. NO NAUSEA OR PAIN REPORTED BY PT. 3LNC REMAINS IN PLACE, WHEEZES NOTED TO BUL, NO DISTRESS. CALL LIGHT IN REACH AND BED ALARM ON.
--- NOTE | 2019-09-24 04:38 | NUR ---
SCHEDULED GABAPENTIN GIVEN (SEE MAR). VS AND I&O'S COLLECTED AND STABLE, PT ON 3LNC, RR EVEN AND UNLABORED. BLANKET PROVIDED PER PT REQUEST, NO FURTHER NEEDS. CALL LIGHT IN REACH. BED ALARM ON.
--- NOTE | 2019-09-24 07:20 | NUR ---
PT RESTING IN BED RR EVEN, EYES CLOSED. PT APPEARS TO BE SLEEPING AT THIS TIME.
--- NOTE | 2019-09-24 09:10 | NUR ---
Notified by Bennie from [facility], pt owes 1400 from last stay and cannot admit until she has paid the balance. She also states she no longer has medicaid benefits as she was reevaluated by [facility] and no longer qualifies. Spoke with Sue and she states she does not have money to pay her past co pay. Also discussed 02 as medicare will not pay for 02 with any acute illness. Sue states her religious will help her pay. She refuses service through [facility] and requests orders to be sent to [facility] in [place]. [address] Tolentino and new orders, pt will go home with for PT/OT. Orders for O2 will be sent to [facility]. Pt had requested new nebulizer, but last one was despensed in 2017. 1030 Called and spoke with [facility] as this is HH agency Sue chose. They will attempt to admit tomorrow. Orders, progress notes, PT/OT eval and notes,face sheet faxed to [facility]. Also called and spoke with Ambika. Let her know per Sue has difficulty answering cell phone and it takes him 2-3 attempts of cutting people off before he can answer. She will let the nurses know.
--- NOTE | 2019-09-24 09:29 | NUR ---
PT SITTING UP AT BEDSIDE EATING BREAKFAST. INTO ASSESS PT AND DISCUSS PLAN OF CARE.
[2019-09-24] MEDS ORDERED: IPRAT-ALBUT 0.5-3 ML INH (09:33)
[2019-09-24] MEDS ORDERED: PREDNISONE20 MG PO (09:37)
[2019-09-24] MEDS ORDERED: TESSALON PERLE100 MG PO (09:49)
--- NOTE | 2019-09-24 10:26 | NUR ---
PT REPORTS THROAT PAIN 8/10, ROBITUSSIN AC GIVEN PRN AND TYLENOL.
--- NOTE | 2019-09-24 10:53 | NUR ---
BED ALARM ON. PT CRAWLING OUT OF BED "TO GO GET SOME ICE." FALL PREVENTION EDUCAITON DONE WITH PT. PT VERBALIZES UNDERSTANDING BUT IS VERY FORGETFUL. PT UP TO CHAIR WITH FWW AND 1PA. CHAIR ALARM ON. CALL LIGHT WITHIN REACH. ICE PROVIDED. NO ADDITIONAL REQUESTS OR COMPLAINTS.
--- NOTE | 2019-09-24 11:42 | NUR ---
PT HAS AMBULATED IN HALLS WITH P.T. WITH 3L OXYGEN, TOLERATED ACTIVITY WELL. PLANS TO STAY FOR LUNCH THEN DISCHARE HOME WITH OXYGEN ORDERS.
--- NOTE | 2019-09-24 13:15 | NUR ---
Received call from Sue's lutheran, they have questions regarding payment for 02. States Sue insisted they put credit card on file at [facility] to pay for her oxygen. Informed they should call and speak with M for requirements. Also suggested, if they do not feel comfortable leaving their credit card or paying for 02, they should not. Discussed they will be build for 02 monthly until pt goes to her Dr and get o2 qualifier in another month. This person does not feel they can pay, informed this alright. She will call and notify spouse.
--- NOTE | 2019-09-24 13:45 | NUR ---
Notified by Nataly BHATTI. Pt now stating she has maldonado in envelopes in the safe at the hospital. She will have her come to the hospital and get the money to pay maldonado for 02. Called and updated Maddie at [facility]. She states she will check if they can forego the credit card on file for the rental of . I asked if she can call me when payment is made as I am concerned about discharging this patient without 02 set.
--- NOTE | 2019-09-24 14:02 | NUR ---
PT IN WHEELCHAIR TO BE TRANSPORTED TO FRONT TO MEET SPOUSE AND GET MED AND BELONGING ENVELOPES FROM [facility]. SHE SAID SHE PLANS TO GIVE HER SPOUSE MONEY TO PAY [facility] FOR OXYGEN.
--- NOTE | 2019-09-24 14:30 | NUR ---
Notified by [facility] pt's spouse paid for 02. Leon Ingram notified o2 will be delivered and pt maybe discharged.
[2019-09-24] MEDS ORDERED: HYDROXYZINE PAM25 MG PO (15:11)
--- NOTE | 2019-09-24 15:22 | NUR ---
PT EDUCATION GIVEN WITH DISCHARGE INCLUDING MEDICATIONS LAST DOSE NEXT DOSE. FOLLOW UP APPOINTMENT MADE. PT HAS OXYGEN BEING DELIVERED TO HOME. PORTABLE TANK SENT HOME. PT HAS MED AND VALUABLES ENVELOPES RETURNED. HER SPOUSE IS OUT FRONT TO PICK HER UP. RX PRINTED AND S[facility]. IV SITE REMOVED BY RADHA MOORE REPORTED TIP INTACT.
== END 2019-09-24 15:27 | disposition home health service (06) | DRG 189 ==
LOC: ED 21:29 → CCU 22:57 → MS 22:57
PROVIDERS: ADMIT Internal Medicine
DX: J96.01 Acute respiratory failure with hypoxia (principal); J44.1 Chronic obstructive pulmonary disease with (acute) exacerbation; F41.9 Anxiety disorder, unspecified; G89.29 Other chronic pain; M54.2 Cervicalgia; M54.9 Dorsalgia, unspecified; M19.90 Unspecified osteoarthritis, unspecified site; R55 Syncope and collapse; Z66 Do not resuscitate; Z20.828 Contact with and (suspected) exposure to other viral communicable diseases; Z77.22 Contact with and (suspected) exposure to environmental tobacco smoke (acute) (chronic); Z88.1 Allergy status to other antibiotic agents; Z87.891 Personal history of nicotine dependence; Z88.0 Allergy status to penicillin; Z88.2 Allergy status to sulfonamides; Z88.8 Allergy status to other drugs, medicaments and biological substances; Z79.899 Other long term (current) drug therapy; Z79.51 Long term (current) use of inhaled steroids
CPT/HCPCS: 36415; 71045; 80048; 80053; 83735; 84484; 85025; 93005; 93010; 93306; 94640; 94644; 94760; 94761; 96374; 97116; 97162; 97165; 99285-25; J1650; J2060; J2930; J7030; Q0177; U0002

== ENCOUNTER 2022-05-11 00:56 | Emergency (ER) | payer MEDICARE, MEDICAID ==
[~2022-05-11] VITALS: Ht 157.5 cm; Wt 86.2 kg
--- NOTE | ~2022-05-11 | EKG ---
[facility] [address] [place], [place] [address] Draft EK completed, results pending confirmation PATIENT NAME: BRISEIDA QUIROZ Electrocardiogram DATE OF : 48 PHYSICIAN: PRELIMINARY REPORT #: [id number] REPORT IS CONFIDENTIAL AND NOT TO BE RELEASED WITHOUT AUTHORIZATION
[~2022-05-11 00:56] MED LIST changes: +ANORO ELLIPTA1 EACH INH; +DULOXETINE HCL30 MG PO; +IPRAT-ALBUT 0.5-3 ML INH; +TESSALON PERLE100 MG PO
--- OUTSIDE RECORDS SUMMARY | 2022-05-11 00:59 | XMS ---
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 EKrista VISIT COUNT (12 MO.) 1 IRINEO Red TOTAL 1 NOTE: Visits indicate total known visits. ED/UCC VISIT TRACKING (12 MO.) 05/11/2022 00:56 IRINEO [place] OR TYPE: Emergency COMPLAINT: - SMOKE INHALATION INPATIENT VISIT TRACKING (12 MO.) No inpatient visits to display in this time frame [id number]
--- NOTE | 2022-05-11 10:26 | NUR ---
0820 - RN alerted me that Pt had blister like sores around ET Tube tam. Upon inspection and removing the Holister device, Pt had readness under sticky pads. Holister removed, pictures documented by RN and Aj ET Tube ;holter with adhesive across upper lip applied and tube secured. [place] bite block placed. Upper dentures were removed at this time and given to significant other who was in the room. ET tube was 24 at the upper lip and 23 at the gum line.
--- NOTE | 2022-05-12 15:59 | EKG ---
[facility] [address] [place] [address] Signed Poor data quality, interpretation may be adversely affected Sinus rhythm with premature atrial complexes with aberrant conduction Nonspecific ST abnormality Abnormal ECG When compared with ECG of 11-MAY-2022 01:58, (Unconfirmed) aberrant conduction is now present Confirmed by GUERO DU MD ([id number]) on 05/12/2022 3:59:08 PM Electronically Signed By: GUERO DU MD 05/12/22 1559 PATIENT NAME: BRISEIDA QUIROZ Electrocardiogram DATE OF : 48 PHYSICIAN: GUERO DU MD REPORT #: [id number] REPORT IS CONFIDENTIAL AND NOT TO BE RELEASED WITHOUT AUTHORIZATION
== END 2022-05-11 09:30 | disposition short-term general hospital (02) ==
LOC: ED 00:56
DX: T59.811A Toxic effect of smoke, accidental (unintentional), initial encounter (principal); T22.111A Burn of first degree of right forearm, initial encounter; T31.0 Burns involving less than 10% of body surface; X08.8XXA Exposure to other specified smoke, fire and flames, initial encounter; Z79.899 Other long term (current) drug therapy; Z79.52 Long term (current) use of systemic steroids; Z20.822 Contact with and (suspected) exposure to COVID-19
CPT/HCPCS: 36415; 36600; 71045; 80053; 81001; 82803; 84484; 85025; 85610; 87502; 93005; 93010; 94002; 96361; 96374; 96375; 96376; 99285-25; C9803; J1100; J2250; J3010; J7121; U0003